=== PATIENT | female | born 1945 | race Caucasian/White ===

== ENCOUNTER 2017-02-23 19:36 | Emergency (ER) | payer OTHER ==
--- NOTE | 2017-02-23 20:04 | EDPHY ---
H & P Stated Complaint: Pt thinks she has West Nile Virus Time Seen by Provider: 02/23/17 20:03 - Personal History Current Tetanus/Diphtheria Vaccine: No - Medical/Surgical History Hx Asthma: No Hx Chronic Respiratory Disease: No Hx Diabetes: Yes Hx Cardiac Disease: Yes Hx Renal Disease: No Hx Cirrhosis: No Hx Alcoholism: No Hx HIV/AIDS: No Hx Splenectomy or Spleen Trauma: No Other PMH: pmh- pre-diabetic, htn, depression, chronic low back pain, hypothryoid. psh- hysterectomy, fawn, appy, ortho - Social History Smoking Status: Former smoker Constitutional: Initial Vital Signs Temperature (C) 37.3 C 02/23/17 19:42 Heart Rate 106 H 02/23/17 19:42 Respiratory Rate 14 02/23/17 19:42 Blood Pressure 132/95 H 02/23/17 19:42 O2 Sat (%) 93 02/23/17 19:42 O2 Delivery Mode Room Air Allergies/Adverse Reactions: No Known Allergies Allergy (Verified 11/25/15 12:43) Home Medications: Medication Instructions Recorded Furosemide [Lasix 20 MG (*)] 20 mg PO DAILY PRN 03/29/14 Levothyroxine Sodium 225 mcg PO SUTUTHSA@03/29/14 Levothyroxine Sodium 300 mcg PO MOWEFR@03/29/14 Zolpidem Tartrate [Ambien 10 mg] 10 mg PO HS 03/29/14 Cholecalciferol (Vitamin D3) 2,000 unit PO DAILY 09/24/14 [Vitamin D3] DULoxetine [Cymbalta 60 MG (*)] 60 mg PO DAILY@22 09/24/14 Multivitamins [Multivitamin (*)] 1 each PO DAILY 09/24/14 Promethazine HCl 25 mg PO DAILY PRN 09/24/14 Amlodipine Besylate 11/25/15 oxyCODONE/APAP 5/325 [Percocet 1 tab PO Q4 PRN #30 tab 11/25/15 5/325 (*)] Medical Decision Making ED Course/Re-evaluation: CHIEF COMPLAINT: HISTORY OF PRESENT ILLNESS: must have 4 elements: Location, Quality, Severity , Duration, Timing, Context, Modifying Factors, Associated Signs and Symptoms REVIEW OF SYSTEMS: A 10 point review of systems was performed and is negative with the exception of the elements mentioned in the history of present illness. PHYSICAL EXAM: HR, BP, O2 Sat, RR. Temp noted General Appearance: Alert, well hydrated, appropriate, and non-toxic appearing. Head: Atraumatic without scalp tenderness or obvious injury Eyes: Pupils equal, round, reactive to light and accommodation, EOMI, no trauma , no injection. Ears: Clear bilaterally, no perforation, normal landmarks Nose: Atraumatic, no rhinorrhea, clear. Throat: There is no erythema or exudates, no lesions, normal tonsils, mucus membranes moist. Neck: Supple, 2+ carotid upstroke, nontender, no lymphadenopathy. Respiratory: No retractions, no distress, no wheezes, and no accessory muscle use. Lungs are clear to auscultation bilaterally. Cardiovascular: Regular rate and rhythm, no murmurs, rubs, or gallops. Bilateral carotid, radial, dorsalis pedis, and posterior tibial pulses intact. Good capillary refill all extremities. Gastrointestinal: Abdomen is soft, nontender, non-distended, no masses, no rebound, no guarding, no peritoneal signs. Musculoskeletal: Normal active ROM of all extremities, atraumatic. Neurological: Alert, appropriate, and interactive. The patient has normal DTRs and non-focal cranial nerves, motor, sensory, and cerebellar exam. Skin: No rashes, good turgor, no nodules on palpation. Past medical history: Past surgical history: Family history: Social history: DIAGNOSTICS/PROCEDURES/CRITICAL CARE TIME: DIFFERENTIAL DIAGNOSIS: MEDICAL DECISION MAKING: Departure - Departure Referrals: Lexii Taylor MD [Primary Care Provider] - As per Instructions
[2017-02-23 20:30] LABS: % IMMATURE GRANULYOCYTES 0.4 % (0.0-1.1); ABSOLUTE IMMATURE GRANULOCYTES 0.03 10^3/uL (0.00-0.10); ADD DIFF? NO; ADD MORPH? NO; ADD SCAN? NO; ATYPICAL LYMPHOCYTE FLAG 30 (0-99); FRAGMENT RBC FLAG 0 (0-99); HEMATOCRIT 42.3 % (38.0-47.0); HEMOGLOBIN 14.3 g/dL (12.6-16.3); LEFT SHIFT FLG 0 (0-99); LIPEMIA HEMOLYSIS FLAG 90 (0-99); MEAN CELL HEMOGLOBIN 32.5 pg (27.9-34.1); MEAN CELL HEMOGLOBIN CONCENTR. 33.8 g/dL (32.4-36.7); MEAN CELL VOLUME 96.1 fL (81.5-99.8); PLATELET CLUMPS FLAG 10 (0-99); PLATELET COUNT 164 10^3/uL (150-400); RED CELL DISTRIBUTION WIDTH 13.3 % (11.5-15.2)
[2017-02-23 20:44] LABS: ANION GAP 12 mEq/L (8-16); CALCIUM 9.2 mg/dL (8.5-10.4); CARBON DIOXIDE 25 mEq/l (22-31); CHLORIDE 101 mEq/L (97-110); CREATININE 0.8 mg/dL (0.6-1.0); GLOMERULAR FILTRATION RATE > 60; GLUCOSE 154 mg/dL (70-100); POTASSIUM 3.4 mEq/L (3.5-5.2); SODIUM 138 mEq/L (134-144)
[2017-02-23 21:50] LABS: COLOR YELLOW; LEUKOCYTE ESTERASE,URINE 3+ (NEGATIVE); NITRITE,URINE NEGATIVE (NEGATIVE)
[2017-02-23 21:53] LABS: BACTERIA TRACE /hpf (NONE SEEN); MUCUS TRACE /lpf (NONE-1+); WBC,URINE 25-50 /hpf (0-3)
--- NOTE | 2017-02-23 21:54 | EDPHY ---
H & P Stated Complaint: Pt thinks she has West Nile Virus Time Seen by Provider: 02/23/17 20:03 HPI/ROS: Chief complaint: Feeling unwell, concerned she has West Nile virus History of present illness: This is a 71-year-old female who presents to the emergency department stating she is feeling unwell. She is concerned she has West Nile virus. She states over the last few days she has developed generalized malaise, headache, low back pain and now a rash on her lower legs. She talked with her neighbor who is concerned because her neighbor had West Nile virus and had a similar presentation. Patient denies other associated signs or symptoms including no fevers, no sore throat, no cough, shortness of breath or chest pain. Review of systems: A 10 point review of systems was obtained and other than described above was negative - Personal History Current Tetanus/Diphtheria Vaccine: No - Medical/Surgical History Hx Asthma: No Hx Chronic Respiratory Disease: No Hx Diabetes: Yes Hx Cardiac Disease: Yes Hx Renal Disease: No Hx Cirrhosis: No Hx Alcoholism: No Hx HIV/AIDS: No Hx Splenectomy or Spleen Trauma: No Other PMH: pmh- pre-diabetic, htn, depression, chronic low back pain, hypothryoid. psh- hysterectomy, fawn, appy, ortho - Social History Smoking Status: Former smoker - Physical Exam Exam: General Appearance: Alert, no distress. Eyes: Pupils equal and round no pallor or injection. ENT, Mouth: Mucous membranes moist. Oropharynx unremarkable. Respiratory: There are no retractions, lungs are clear to auscultation. Cardiovascular: Regular rate and rhythm. Gastrointestinal: Abdomen is soft and non tender, no masses, bowel sounds normal. Neurological: Alert and oriented x4. Strength and sensation intact and symmetrical. No meningismus. Skin: Warm and dry. Chronic changes of the lower extremities secondary to her diabetes. Occasional petechiae are noted on the lower extremities bilaterally which she states is new. Musculoskeletal: Neck is supple non tender. Extremities are symmetrical, full range of motion. Psychiatric: Patient is oriented X 3, there is no agitation. Constitutional: Initial Vital Signs Temperature (C) 37.3 C 02/23/17 19:42 Heart Rate 106 H 02/23/17 19:42 Respiratory Rate 14 02/23/17 19:42 Blood Pressure 132/95 H 02/23/17 19:42 O2 Sat (%) 93 02/23/17 19:42 O2 Delivery Mode Room Air Allergies/Adverse Reactions: No Known Allergies Allergy (Verified 11/25/15 12:43) Home Medications: Medication Instructions Recorded Furosemide [Lasix 20 MG (*)] 20 mg PO DAILY PRN 03/29/14 Levothyroxine Sodium 225 mcg PO SUTUTHSA@03/29/14 Levothyroxine Sodium 300 mcg PO MOWEFR@03/29/14 Zolpidem Tartrate [Ambien 10 mg] 10 mg PO HS 03/29/14 Cholecalciferol (Vitamin D3) 2,000 unit PO DAILY 09/24/14 [Vitamin D3] DULoxetine [Cymbalta 60 MG (*)] 60 mg PO DAILY@09/24/14 Multivitamins [Multivitamin (*)] 1 each PO DAILY 09/24/14 Promethazine HCl 25 mg PO DAILY PRN 09/24/14 Amlodipine Besylate 11/25/15 oxyCODONE/APAP 5/325 [Percocet 1 tab PO Q4 PRN #30 tab 11/25/15 5/325 (*)] Cephalexin [Keflex] 500 mg PO TID 7 Days 02/23/17 Medical Decision Making ED Course/Re-evaluation: Patient is discussed with my secondary supervising physician Dr. Jonathon Hogan. Patient presents to the emergency department concerned she has West Nile virus. On presentation she is nontoxic. Afebrile and vital signs are stable. Physical exam does reveal occasional petechiae to the lower extremities but is otherwise unremarkable. Laboratory studies largely unremarkable. Urinalysis is concerning for potential urinary tract infection. West Nile serologies are pending. At this time my suspicion for serious pathology is low. I will treat her with Keflex for potential urinary tract infection which could be causing the symptoms. We have asked her to keep an eye on her rash as this could be a vasculitis although it is not clear and if it worsens she will need follow-up for recheck. She is asked to follow up with her primary care doctor for recheck next week. Return precautions are given. Patient voiced understanding and agreement with plan. Differential Diagnosis: Included but not limited to viral syndrome including West Nile, respiratory tract infections, urinary tract infections vasculitis unlikely meningitis - Data Points Laboratory Results: Laboratory Results 02/23/17 20:23 02/23/17 20:23 02/23/17 02/23/17 02/23/17 21:42 20:23 20:23 WBC RBC Hgb Hct MCV MCH MCHC RDW Plt Count MPV Neut % (Auto) Lymph % (Auto) Steele % (Auto) Eos % (Auto) Baso % (Auto) Nucleat RBC Rel Count Absolute Neuts (auto) Absolute Lymphs (auto) Absolute Monos (auto) Absolute Eos (auto) Absolute Basos (auto) Absolute Nucleated RBC Immature Gran % Immature Gran # Sodium 138 mEq/L mEq/L (134-144) Potassium 3.4 mEq/L L mEq/L (3.5-5.2) Chloride 101 mEq/L mEq/L (97-110) Carbon Dioxide 25 mEq/l mEq/l (22-31) Anion Gap 12 mEq/L mEq/L (8-16) BUN 14 mg/dL mg/dL (7-23) Creatinine 0.8 mg/dL mg/dL (0.6-1.0) Estimated GFR > 60 Glucose 154 mg/dL H mg/dL (70-100) Calcium 9.2 mg/dL mg/dL (8.5-10.4) Urine Color YELLOW Urine Appearance HAZY Urine pH 5.0 (5.0-7.5) Ur Specific [place] 1.015 (1.002-1.030) Urine Protein NEGATIVE (NEGATIVE) Urine Ketones NEGATIVE (NEGATIVE) Urine Blood 1+ H (NEGATIVE) Urine Nitrate NEGATIVE (NEGATIVE) Urine Bilirubin NEGATIVE (NEGATIVE) Urine Urobilinogen NEGATIVE EU EU (0.2-1.0) Ur Leukocyte Esterase 3+ H (NEGATIVE) Urine RBC 1-3 /hpf /hpf (0-3) Urine WBC 25-50 /hpf H /hpf (0-3) Ur Epithelial Cells TRACE /lpf /lpf (NONE-1+) Urine Bacteria TRACE /hpf H /hpf (NONE SEEN) Urine Mucus TRACE /lpf /lpf (NONE-1+) Urine Glucose NEGATIVE (NEGATIVE) West Nile Virus IgG Ab Pending West Nile Virus IgM Ab Pending West Nile Interp Pending 02/23/17 20:23 WBC 8.30 10^3/uL 10^3/uL (3.80-9.50) RBC 4.40 10^6/uL 10^6/uL (4.18-5.33) Hgb 14.3 g/dL g/dL (12.6-16.3) Hct 42.3 % % (38.0-47.0) MCV 96.1 fL fL (81.5-99.8) MCH 32.5 pg pg (27.9-34.1) MCHC 33.8 g/dL g/dL (32.4-36.7) RDW 13.3 % % (11.5-15.2) Plt Count 164 10^3/uL 10^3/uL (150-400) MPV 10.0 fL fL (8.7-11.7) Neut % (Auto) 57.4 % % (39.3-74.2) Lymph % (Auto) 26.3 % % (15.0-45.0) Steele % (Auto) 10.7 % % (4.5-13.0) Eos % (Auto) 4.2 % % (0.6-7.6) Baso % (Auto) 1.0 % % (0.3-1.7) Nucleat RBC Rel Count 0.0 % % (0.0-0.2) Absolute Neuts (auto) 4.77 10^3/uL 10^3/uL (1.70-6.50) Absolute Lymphs (auto) 2.18 10^3/uL 10^3/uL (1.00-3.00) Absolute Monos (auto) 0.89 10^3/uL H 10^3/uL (0.30-0.80) Absolute Eos (auto) 0.35 10^3/uL 10^3/uL (0.03-0.40) Absolute Basos (auto) 0.08 10^3/uL 10^3/uL (0.02-0.10) Absolute Nucleated RBC 0.00 10^3/uL 10^3/uL (0-0.01) Immature Gran % 0.4 % % (0.0-1.1) Immature Gran # 0.03 10^3/uL 10^3/uL (0.00-0.10) Sodium Potassium Chloride Carbon Dioxide Anion Gap BUN Creatinine Estimated GFR Glucose Calcium Urine Color Urine Appearance Urine pH Ur Specific [place] Urine Protein Urine Ketones Urine Blood Urine Nitrate Urine Bilirubin Urine Urobilinogen Ur Leukocyte Esterase Urine RBC Urine WBC Ur Epithelial Cells Urine Bacteria Urine Mucus Urine Glucose West Nile Virus IgG Ab West Nile Virus IgM Ab West Nile Interp Medications Given: Discontinued Medications Cephalexin (Keflex 500 Mg Prepack#4) 1 btl TAKEHOME EDNOW ONE PRN Reason: Protocol Stop: 02/23/17 21:58 Last Admin: 02/23/17 22:16 Dose: 1 btl Departure - Departure Disposition: Home, Routine, Self-Care Clinical Impression: UTI (urinary tract infection), Rash Condition: Good Instructions: Urinary Tract Infection in Women (ED), Acute Rash (ED) Additional Instructions: Follow-up with your primary care doctor on Saturday for recheck without fail If symptoms worsen or new symptoms develop return to the emergency room for recheck Referrals: Lexii Taylor MD [Primary Care Provider] - As per Instructions Prescriptions: Cephalexin [Keflex] 500 mg PO TID 7 Days
[2017-02-23] MEDS ORDERED: CEPHALEXIN 500MG PREPACK#4 BTL TAKEHOME ONE (21:57)
[2017-02-23 22:22] VITALS: BP 128/85; PULSE 100; RESP 16; TEMP 98.8; O2SAT 94
[2017-02-27 15:07] LABS: INTERPRETATION See Comments; WEST NILE VIRUS IGG Negative (Negative); WEST NILE VIRUS IGM Negative (Negative)
== END 2017-02-23 22:21 | disposition home or self-care (01) ==
DX: R21 Rash and other nonspecific skin eruption (principal); N39.0 Urinary tract infection, site not specified; B96.89 Other specified bacterial agents as the cause of diseases classified elsewhere; E11.9 Type 2 diabetes mellitus without complications; I10 Essential (primary) hypertension; Z87.891 Personal history of nicotine dependence

== ENCOUNTER → 2017-03-05 | Outpatient (CLI) | payer OTHER | LOC: FIMAGING 10:02 | PROVIDERS: ATTEND Internal Medicine | DX: M51.36 Other intervertebral disc degeneration, lumbar region (principal); M51.35 Other intervertebral disc degeneration, thoracolumbar region; M12.88 Other specific arthropathies, not elsewhere classified, other specified site; M48.06 Spinal stenosis, lumbar region; M99.73 Connective tissue and disc stenosis of intervertebral foramina of lumbar region ==

== ENCOUNTER 2017-03-25 07:44 | Emergency (ER) | payer OTHER ==
[2017-03-25 07:51] VITALS: TEMP 98.2
--- NOTE | 2017-03-25 08:23 | EDPHY ---
H & P Stated Complaint: Fell out of bed,hit head on dresser;no LOC;lac to R upper forehead Source: Patient - Personal History Current Tetanus Diphtheria and Acellular Pertussis (TDAP): Unsure - Medical/Surgical History Hx Asthma: No Hx Chronic Respiratory Disease: No Hx Diabetes: Yes Hx Cardiac Disease: Yes Hx Renal Disease: No Hx Cirrhosis: No Hx Alcoholism: No Hx HIV/AIDS: No Hx Splenectomy or Spleen Trauma: No Other PMH: pmh- pre-diabetic, htn, depression, chronic low back pain, hypothryoid. psh- hysterectomy, fawn, appy, ortho - Social History Smoking Status: Former smoker Time Seen by Provider: 03/25/17 08:23 Constitutional: Initial Vital Signs Temperature (C) 36.8 C 03/25/17 07:46 Heart Rate 96 03/25/17 07:46 Respiratory Rate 18 03/25/17 07:46 Blood Pressure 150/90 H 03/25/17 07:46 O2 Sat (%) 95 03/25/17 07:46 O2 Delivery Mode Room Air Allergies/Adverse Reactions: No Known Allergies Allergy (Verified 03/25/17 07:45) Home Medications: Medication Instructions Recorded Furosemide [Lasix 20 MG (*)] 20 mg PO DAILY PRN 03/29/14 Levothyroxine Sodium 225 mcg PO SUTUTHSA@03/29/14 Levothyroxine Sodium 300 mcg PO MOWEFR@03/29/14 Zolpidem Tartrate [Ambien 10 mg] 10 mg PO HS 03/29/14 DULoxetine [Cymbalta 60 MG (*)] 60 mg PO DAILY@09/24/14 Amlodipine Besylate 11/25/15 oxyCODONE/APAP 5/325 [Percocet 1 tab PO Q4 PRN #30 tab 11/25/15 5/325 (*)] Medical Decision Making - Diagnostics Imaging: Discussed imaging studies w/ crew caller Radiologist - Diagnostics Imaging Results: Imaging Impressions Head CT 03/25/17 08:30 Impression: 1. Right frontotemporal laceration. 2. No acute intracranial abnormality. 3. Mild volume loss. 4. Mild chronic small vessel skin changes in the supratentorial white matter. Dr. Rodriguez discussed these findings by telephone with Jonathon Hogan MD at 05/2017 9:16. Procedures: Procedure: Laceration repair. Verbal consent was obtained from the patient. The 6 cm laceration on the right temporal scalp was anesthetized using 1% lidocaine with epinephrine. The wound was carefully irrigated by the emergency department atmospheric technician. Next, the wound was prepped and draped in sterile fashion and explored to its base with a gloved finger. There were no deep structures involved. No vascular injury was identified. No foreign bodies were identified. The wound was repaired with 14. Nelly. The wound repair was simple. The procedure was performed by myself. Tetanus and antibiotic status were addressed. (Xi Fernandes) ED Course/Re-evaluation: CHIEF COMPLAINT: Scalp laceration. HISTORY OF PRESENT ILLNESS: The patient is a 71-year-old female presenting with a head laceration after a mechanical fall this morning. The patient was getting out of bed this morning and tripped over a blanket. She hit her head on the dresser and has a laceration to the right frontal scalp. The patient did not lose consciousness. She denies headache or visual changes. No chest pain or shortness of breath prior to the fall. REVIEW OF SYSTEMS: A 10 point review of systems was performed and is negative with the exception of the elements mentioned in the history of present illness. PHYSICAL EXAM: HR, BP, O2 Sat, RR. Temp noted General Appearance: Alert, well hydrated, appropriate, and non-toxic appearing. Head: 6cm Laceration along the hairline on the right. Eyes: Pupils equal, round, reactive to light and accommodation, EOMI, no trauma , no injection. Ears: Clear bilaterally, no perforation. Throat: There is no erythema or exudates, no lesions, normal tonsils, mucus membranes moist. Neck: Supple, 2+ carotid upstroke, nontender, no lymphadenopathy. Respiratory: No retractions, no distress, no wheezes, and no accessory muscle use. Lungs are clear to auscultation bilaterally. Cardiovascular: Regular rate and rhythm, no murmurs, rubs, or gallops. Bilateral carotid, radial, dorsalis pedis, and posterior tibial pulses intact. Good capillary refill all extremities. Gastrointestinal: Abdomen is soft, nontender, non-distended, no masses, no rebound, no guarding, no peritoneal signs. Musculoskeletal: Normal active ROM of all extremities, atraumatic. Neurological: Alert, appropriate, and interactive. The patient has normal DTRs and non-focal cranial nerves, motor, sensory, and cerebellar exam. Skin: No rashes, good turgor, no nodules on palpation. Past medical history: Hypertension, Depression, Chronic low back pain, Hypothyroid. Past surgical history: Hysterectomy, Cholecystectomy, Appendectomy Family history: Noncontributory. Social history: DIAGNOSTICS/PROCEDURES/CRITICAL CARE TIME: The LESLEY Fernandes performed the laceration repair. DIFFERENTIAL DIAGNOSIS: The differential diagnosis for the patient's head injury included but was not limited to scalp laceration, concussion, skull fracture, intra-parenchymal contusion, subarachnoid, subdural and epidural hematoma. MEDICAL DECISION MAKING: Patient presents with a 6cm laceration along the hairline on the right side from a mechanical fall. Patient takes Aspirin, no anticoagulants. Plan for CT head without contrast. CT head is negative. (Jonathon Hogan) - Data Points Medications Given: Discontinued Medications Diphtheria/Tetanus/Acell Pertussis (Boostrix) 0.5 ml IM .ONCE ONE Stop: 03/25/17 08:37 Last Admin: 03/25/17 08:52 Dose: 0.5 ml Departure - Departure Disposition: Home, Routine, Self-Care Clinical Impression: Laceration of head Qualifiers: Encounter type: initial encounter Location of open wound of head: scalp Foreign body presence: without foreign body Qualified Code(s): S01.01XA - Laceration without foreign body of scalp, initial encounter Condition: Good Instructions: Care For Your Stitches (ED), Laceration (ED) Additional Instructions: Have your nelly removed in [] days. Return to the Emergency Department with fever, increased redness, pain, swelling, or drainage from the wound. Referrals: Lexii Taylor MD [Primary Care Provider] - As per Instructions Report Scribed for: Jonathon Hogan Report Scribed by: Clara Marie Date of Report: 03/25/17 Time of Report: 09:19
[2017-03-25] MEDS ORDERED: TDAP ADULT 0.5 ML INJ (BOOSTRIX) IM ONE (08:36)
[2017-03-25 09:57] VITALS: BP 108/81; PULSE 95; RESP 16; O2SAT 96
== END 2017-03-25 10:51 | disposition home or self-care (01) ==
PROC: 0HQ0XZZ Repair Scalp Skin, External Approach (ICD-10-PCS; principal; 2017-03-25)
DX: S01.01XA Laceration without foreign body of scalp, initial encounter (principal); I10 Essential (primary) hypertension; Z23 Encounter for immunization; Z87.891 Personal history of nicotine dependence; W01.198A Fall on same level from slipping, tripping and stumbling with subsequent striking against other object, initial encounter

== ENCOUNTER 2017-04-27 13:40 | Emergency (ER) | payer OTHER ==
[2017-04-27 13:54] VITALS: TEMP 98.1
--- NOTE | 2017-04-27 15:02 | EDPHY ---
H & P Time Seen by Provider: 04/27/17 15:00 HPI/ROS: CHIEF COMPLAINT: Right-sided chest pain after a fall HISTORY OF PRESENT ILLNESS: Patient was playing Frisbee with her dog 10 days ago when she reached for the Frisbee and then tripped over her dog pivoting and landing on her chest. The right side of her chest hurt a little bit initially but over the last 4 5 days it hurts more. She says she can feel little bit of crunching when she takes a big breath or moves. It is located above her breast on the right. Radiates a little bit to her back but not to the left side. Not exertional and not associated with cough or shortness of breath or nausea or vomiting. REVIEW OF SYSTEMS: Eye: no change in vision ENT: no sore throat Cardiac: No palpitations or syncope Pulmonary: no cough or SOB Abdomen: no vomiting, diarrhea, abdominal pain Musculoskeletal: Ongoing back pain, unchanged. No neck pain. Skin: no rash Neuro: no headache Constitutional: no fever : no urinary symptoms A comprehensive 10 point review of systems is otherwise negative aside from elements mentioned in the history of present illness. PAST MEDICAL HISTORY: Includes hypertension and depression, back pain, thyroid , hysterectomy cholecystectomy appendectomy Social history: Nonsmoker General Appearance: Alert and conversant, cooperative. Eyes: No scleral icterus. ENT, Mouth: Normal mucous membranes. Respiratory: Normal respiratory effort, breath sounds equal, lungs are clear to auscultation. No crepitus. Cardiovascular: Regular rate and rhythm. Gastrointestinal: Abdomen is soft and non tender. Neurological: Alert and oriented x3. Normally conversant. Face symmetric, normal movement and sensation in all extremities. Skin: Warm and dry, no rashes. Musculoskeletal: No midline spinal tenderness. Psychiatric: Not agitated. Emergency Department course/MDM: Chest x-ray ordered. Results reviewed with the patient. I told her she could have a nondisplaced rib fracture. She thinks that she can feel crunching when she rolls over in bed at night. She has oxycodone prescribed by her physician. She is warned that full healing may take at least a couple of months. She is reassured that I do not see pneumothorax or hemothorax. I do not think this chest pain is related to anything other than her recent injury. Smoking Status: Former smoker Constitutional: Initial Vital Signs Temperature (C) 36.7 C 04/27/17 13:52 Heart Rate 93 04/27/17 13:52 Respiratory Rate 18 04/27/17 13:52 Blood Pressure 123/70 H 04/27/17 13:52 O2 Sat (%) 93 04/27/17 13:52 O2 Delivery Mode Room Air Allergies/Adverse Reactions: No Known Allergies Allergy (Verified 04/27/17 13:54) Home Medications: Medication Instructions Recorded Furosemide [Lasix 20 MG (*)] 20 mg PO DAILY PRN 03/29/14 Levothyroxine Sodium 225 mcg PO SUTUTHSA@03/29/14 Levothyroxine Sodium 300 mcg PO MOWEFR@03/29/14 Zolpidem Tartrate [Ambien 10 mg] 10 mg PO HS 03/29/14 DULoxetine [Cymbalta 60 MG (*)] 60 mg PO DAILY@09/24/14 Amlodipine Besylate 11/25/15 oxyCODONE/APAP 5/325 [Percocet 1 tab PO Q4 PRN #30 tab 11/25/15 5/325 (*)] Medical Decision Making - Diagnostics Imaging Results: Imaging Impressions Chest X-Ray 04/27/17 15:01 Impression: 1. Equivocal nondisplaced anterior right fifth rib fracture. 2. Clear lungs. No pneumothorax or effusion. Differential Diagnosis: Differential considered including but not limited to pneumothorax, hemothorax, rib fracture, chest wall contusion. Departure - Departure Disposition: Home, Routine, Self-Care Clinical Impression: Chest wall contusion Condition: Good Instructions: Contusion in Adults (ED), Rib Contusion (ED) Additional Instructions: It is possible that you have a nondisplaced rib fracture. Tylenol 650 mg or ibuprofen 600 mg every 8 hours for the next 3 days. Use your oxycodone as needed for breakthrough pain. Please follow-up with your primary care doctor next week for re-evaluation. Referrals: Lexii Taylor MD [Primary Care Provider] - As per Instructions
[2017-04-27 16:07] VITALS: BP 114/101; PULSE 90; RESP 16; O2SAT 94
== END 2017-04-27 16:05 | disposition home or self-care (01) ==
DX: S20.211A Contusion of right front wall of thorax, initial encounter (principal); W01.0XXA Fall on same level from slipping, tripping and stumbling without subsequent striking against object, initial encounter; Y93.74 Activity, frisbee; I10 Essential (primary) hypertension; Z87.891 Personal history of nicotine dependence

== ENCOUNTER → 2017-12-03 | Outpatient (CLI) | payer OTHER | LOC: FIMAGING 11:24 | PROVIDERS: ATTEND Internal Medicine Endocrinology, Diabetes & Metabolism | DX: Z13.820 Encounter for screening for osteoporosis (principal); M81.0 Age-related osteoporosis without current pathological fracture; Z87.311 Personal history of (healed) other pathological fracture ==

== ENCOUNTER 2018-06-15 09:09 | Inpatient (IN) | payer OTHER ==
[2018-06-15] MEDS ORDERED: HYDROmorphONE/DILAUDID 2 MG/ML INJ IVP ONE (09:35)
--- NOTE | 2018-06-15 09:38 | EDPHY ---
H & P Stated Complaint: L hand lac - Personal History Current Tetanus/Diphtheria Vaccine: Yes Current Tetanus Diphtheria and Acellular Pertussis (TDAP): Yes - Medical/Surgical History Hx Asthma: No Hx Chronic Respiratory Disease: No Hx Diabetes: Yes Hx Cardiac Disease: Yes Hx Renal Disease: No Hx Cirrhosis: No Hx Alcoholism: No Hx HIV/AIDS: No Hx Splenectomy or Spleen Trauma: No Other PMH: pmh- pre-diabetic, htn, depression, chronic low back pain, hypothryoid. psh- hysterectomy, fawn, appy, ortho - Social History Smoking Status: Former smoker Time Seen by Provider: 06/15/18 09:28 HPI/ROS: Chief complaint: Left hand infection History of present illness: This is a 72-year-old female who presents to the emergency department concerned she has a left hand infection. On , approximately 4 days ago, she sustained a small cut to her left thumb opening a bottle of olive oil. She cleaned it and dressed it. However yesterday she started to develope significant redness and swelling extending up onto the wrist. There is a significant amount of pain associated with it. It is difficult to move the thumb and wrist. No report of fevers. No red streaking. No other complaints. Review of systems: A 10 point review of systems was obtained and other than described above was negative (Jame Bueno) - Physical Exam Exam: General Appearance: Alert, appears uncomfortable. Eyes: Pupils equal and round no pallor or injection. ENT, Mouth: Mucous membranes moist. Respiratory: There are no retractions, lungs are clear to auscultation. Cardiovascular: Regular rate and rhythm. Neurological: Alert and oriented. Sensation intact in the left hand. Skin: There is a small cut the flexor surface of the left thumb. The thumb, extending down onto the thenar eminence and up onto the anterior surface of the wrist and forearm is erythematous and edematous. There is warmth and tenderness to palpation. I do not appreciate red streaking. Musculoskeletal: She has difficulty moving the thumb and wrist on the left side. Psychiatric: Patient is oriented X 3, there is no agitation. (Jame Bueno) Constitutional: Initial Vital Signs Temperature (C) 36.9 C 06/15/18 09:18 Heart Rate 112 H 06/15/18 09:18 Respiratory Rate 24 H 06/15/18 09:18 Blood Pressure 154/98 H 06/15/18 09:18 O2 Sat (%) 92 06/15/18 09:18 O2 Delivery Mode Room Air Allergies/Adverse Reactions: No Known Allergies Allergy (Verified 06/15/18 09:16) Home Medications: Medication Instructions Recorded Furosemide [Lasix 20 MG (*)] 20 mg PO DAILY PRN 03/29/14 Levothyroxine Sodium 150 mcg PO DAILY 03/29/14 DULoxetine [Cymbalta 60 MG (*)] 60 mg PO DAILY@22 09/24/14 Denosumab [Prolia] 60 mg SQ .[id number] 06/15/18 Herbals/Supplements -Info Only 1 ea PO DAILY 06/15/18 Ibuprofen [Motrin (*)] 600 mg PO DAILY PRN 06/15/18 Pioglitazone HCl [Actos 15mg (*)] 15 mg PO DAILY 06/15/18 Zolpidem Tartrate [Ambien 5MG (*)] 10 mg PO HS 06/15/18 amLODIPine BESYLATE [Norvasc 5 mg 5 mg PO DAILY 06/15/18 (*)] Medical Decision Making - Diagnostics Imaging: I viewed and interpreted images myself ED Course/Re-evaluation: Patient seen in conjunction with my attending physician Dr. Dick Larsen. Patient presents with what appears to be a left hand and wrist cellulitis. She is nontoxic. She did trigger sepsis screening but no evidence of severe sepsis after evaluation. Given her comorbidities including age and diabetes and evidence of cellulitis I will admit her for further evaluation and care. She is started on Ancef 2 g IV. Plan has been discussed with the patient who voiced understanding and agreement with it. (Jame Bueno) Differential Diagnosis: Included but not limited to cellulitis, abscess, infectious tenosynovitis, lymphangitis, osteomyelitis (Jame Bueno) Other Provider: PHYSICIAN DOCUMENTATION: The patient was evaluated and managed by the Physician Family Independence Case Manager and myself. I have reviewed the chart and agree with the findings and plan of care as documented. In addition, I examined the patient myself at 935. History confirmed as laceration while opening a bottle, previous surgery on that left wrist for fracture. Physical findings as follows: Redness and swelling extending from the IP joint of the thumb at the laceration proximally extending 4 or 5 cm proximal on the wrist on the volar side including over the previous surgical incision. She is tender there, but no fluctuance or crepitus. Admission for IV antibiotics for left thumb and hand infection. I am the secondary supervising physician. (Dick Larsen) - Data Points Medications Given: Hydrocodone Bitart/Acetaminophen ([place] 5/325) 1 - 2 tab PO Q4HRS PRN PRN Reason: Pain, Moderate Able to Take PO Stop: 06/25/18 12:13 Last Admin: 06/15/18 12:22 Dose: 1 tab Cefazolin Sodium/Dextrose (Ancef 1 Gm (Premix)) 50 mls @ 200 mls/hr IV Q8HRS KYLEIGH PRN Reason: Protocol Stop: 07/15/18 13:59 Last Admin: 06/15/18 13:49 Dose: 50 mls Ondansetron HCl (Zofran Odt) 4 mg PO Q4HRS PRN PRN Reason: Nausea/Vomiting, Use 1st Stop: 12/12/18 12:13 Last Admin: 06/15/18 13:21 Dose: 4 mg Oxycodone HCl (Oxycodone Ir) 5 - 10 mg PO Q3HRS PRN PRN Reason: Pain, Severe Able to Take PO Stop: 06/25/18 12:13 Last Admin: 06/15/18 13:21 Dose: 5 mg Discontinued Medications Hydrocodone Bitart/Acetaminophen ([place] 5/325) 1 tab PO EDNOW ONE Stop: 06/15/18 10:02 Last Admin: 06/15/18 10:08 Dose: 1 tab Hydromorphone HCl (Dilaudid) 0.5 mg IVP EDNOW ONE Stop: 06/15/18 09:36 Last Admin: 06/15/18 10:20 Dose: 0.5 mg Cefazolin Sodium/Dextrose (Ancef 1 Gm (Premix)) 50 mls @ 200 mls/hr IV EDNOW ONE PRN Reason: Protocol Stop: 06/15/18 09:49 Last Admin: 06/15/18 10:19 Dose: 50 mls Cefazolin Sodium/Dextrose (Ancef 1 Gm (Premix)) 50 mls @ 200 mls/hr IV EDNOW ONE PRN Reason: Protocol Stop: 06/15/18 10:01 Last Admin: 06/15/18 10:20 Dose: Not Given Sodium Chloride (Ns) 1,000 mls @ 0 mls/hr IV EDNOW ONE; Wide Open PRN Reason: Protocol Stop: 06/15/18 09:48 Last Admin: 06/15/18 10:21 Dose: 1,000 mls Magnesium Sulfate/Dextrose (Magnesium Sulf 1 Gm (Premix)) 100 mls @ 100 mls/hr IV EDNOW ONE Stop: 06/15/18 11:48 Last Admin: 06/15/18 12:28 Dose: 100 mls Potassium Chloride (Potassium Cl 10 Meq (Premix)) 100 mls @ 100 mls/hr IV EDNOW ONE Stop: 06/15/18 11:48 Last Admin: 06/15/18 11:04 Dose: 100 mls Ibuprofen (Motrin) 400 mg PO EDNOW ONE Stop: 06/15/18 10:00 Last Admin: 06/15/18 10:07 Dose: 400 mg Ondansetron HCl (Zofran Odt) 4 mg PO EDNOW ONE Stop: 06/15/18 10:03 Last Admin: 06/15/18 10:20 Dose: 4 mg Departure - Departure Disposition: [facility] Acute Clinical Impression: Cellulitis of left thumb Condition: Good
[2018-06-15] MEDS ORDERED: NS 1,000 ML IV ONE (09:47)
[2018-06-15] MEDS ORDERED: IBUPROFEN 200 MG TAB PO ONE (09:59)
[2018-06-15] MEDS ORDERED: HYDROCODONE/APAP 5/325 TAB PO ONE (10:01)
[2018-06-15] MEDS ORDERED: ONDANSETRON DISINTEGRATING 4 MG TAB PO ONE (10:02)
[2018-06-15 10:28] LABS: PLATELET COUNT 183 10^3/uL (150-400)
[2018-06-15 10:37] LABS: INR 1.13 (0.83-1.16); PROTIME(PATIENT) 14.7 SEC (12.0-15.0)
[2018-06-15] MEDS ORDERED: POTASSIUM Cl (KCl) 100 ML IV ONE (10:49)
[2018-06-15] MEDS ORDERED: MAGNESIUM SULF 1 GM/DEXTROSE 100 ML IV ONE (10:49)
[2018-06-15] MEDS ORDERED: ONDANSETRON 4 MG/2 ML VIAL IVP PRN (12:14)
[2018-06-15] MEDS ORDERED: ONDANSETRON DISINTEGRATING 4 MG TAB PO PRN (12:14)
[2018-06-15] MEDS ORDERED: PROTOCOL POTASSIUM 1 DOSE MISC PRN (12:16)
[2018-06-15] MEDS: HYDROCODONE/APAP 5/325 TAB PO PRN ×2 (12:22→17:00)
[2018-06-15] MEDS ORDERED: FUROSEMIDE 20 MG TAB PO PRN (12:58)
--- NOTE | 2018-06-15 12:59 | CPEKG ---
Test Reason : OPEN Blood Pressure : / mmHG Vent. Rate : 099 BPM Atrial Rate : 099 BPM P-R Int : 188 ms QRS Dur : 079 ms QT Int : 384 ms P-R-T Axes : 051 000 084 degrees QTc Int : 493 ms Sinus rhythm Low voltage, precordial leads Borderline T abnormalities, anterior leads Borderline prolonged QT interval Confirmed by Dick Larsen ([id number]) on 06/15/2018 12:58:55 PM Referred By: Confirmed By:Dick Larsen
[2018-06-15] MEDS: oxyCODONE IR 5 MG TAB PO PRN ×4 (13:21→23:25)
[2018-06-15] MEDS ORDERED: D50W 25 GM/50 ML SYR IVP PRN (14:12)
[2018-06-15] MEDS ORDERED: IBUPROFEN 600 MG TAB PO PRN (14:12)
--- NOTE | 2018-06-15 15:06 | GHP ---
DATE OF ADMISSION: 06/15/2018 CHIEF COMPLAINT: Hand pain. HISTORY OF PRESENT ILLNESS: The patient is a 72-year-old woman with a history significant for diabet es. She comes in today after cutting her left thumb with increasing hand pain and swelling. She surendra d she cut her thumb 3 days ago and over the last couple days noted increasing swelling and pain. Thi s morning her pain was much more severe and she came into the emergency room for further evaluation a nd treatment. She is having more trouble moving her hand. She denies any fever. She has had some c hills. She denies feeling ill or significant malaise, however, does say that because of the pain, yue leon does not know how she feels. She denies any chest pain, shortness of breath, nausea, vomiting, avis rrhea. She has chronic lower extremity edema and was told she had "an infection" by her primary care provider previously. It sounds like her edema is unchanged. REVIEW OF SYSTEMS: A 10-point review of systems was done and negative except for stated in the HPI. PAST MEDICAL HISTORY: 1. Hypertension. 2. Chronic edema. 3. Hyperlipidemia. 4. Diabetes type 2. 5. Depression. 6. Chronic back pain, currently with a spinal stimulator in place. 7. Hypothyroidism. 8. Obstructive sleep apnea. ALLERGIES: No known drug allergies. SOCIAL HISTORY: She does not drink. Former tobacco use. FAMILY HISTORY: Parents are . PHYSICAL EXAMINATION: VITAL SIGNS: She is afebrile. Heart rate 54, blood pressure 138/79, respirat ions 18. She is 97% on room air. GENERAL: She is a very pleasant 72-year-old. She is in some dist ress due to pain in her left hand. She is alert and oriented. Her speech is clear and fluent. Pupi ls are equal. Extraocular movements intact. Mucous membranes are moist. NECK: Supple. HEART: Re gular with a soft systolic murmur. LUNGS: Clear bilaterally without wheeze, rhonchi, or rales. ABD OMEN: Obese, soft, nontender to palpation. EXTREMITIES: She has bilateral lower extremities with c hronic venous stasis changes, 2+ pulses bilaterally. Left hand shows a laceration across her PIP cony nt of her left thumb with no exudates. She has erythema extending from her thumb down across her the dairan eminence up her wrist and forearm about 3-4 inches. She has tenderness with flexion and extensio n of her thumb, as well as flexion of her wrist. She can flex her fingers, but does have some mild d iscomfort in the palm of her hand with that. She does not have any significant adenopathy in her arm pit. Diagnostics electrocardiogram was done and personally reviewed, shows sinus rhythm, low voltage. Quesada d x-ray shows no fracture, no evidence of osteomyelitis. ASSESSMENT AND PLAN: 1. 72-year-old woman with diabetes, presents with cellulitis of her left hand. Likely source is a l aceration she sustained a few days prior to the swelling. Unclear if she has any evidence of tenosyn ovitis. However, her hand is quite swollen and painful at this time. I did discuss the case with Dr Claudia Saucedo. At this time, I will start her on antibiotics and monitor her closely. Unfortunately, w edward are not able to obtain an MRI because she has a spinal stimulator in place. We will follow her swe lling and erythema closely on antibiotics and hopefully if it significantly improves with improved ra nge of motion with antibiotics alone, she may not need any further surgical intervention. Otherwise, Dr. Saucedo will evaluate the patient. 2. Leukocytosis, likely secondary to the cellulitis. We will monitor this with followup labs in the morning. Blood cultures have been drawn and are pending at the time of dictation. 3. Laceration. This appears to be pretty well healed. She did have a tetanus shot in 2017 and does not need that at this time. 4. Type 2 diabetes, currently on pioglitazone. Will put her on sliding scale insulin while she is h ere in the hospital to obtain better glucose control. 5. Lower extremity edema. This appears to be chronic. Certainly it could be exacerbated by amlodip ine. I am not sure if the pioglitazone can also cause some swelling. She may look into other option s for her blood pressure control as an outpatient. 6. Hypertension, stable. 7. Dyslipidemia. Continue her statin. 8. Chronic low back pain, currently on ibuprofen and meloxicam occasionally. She can continue the i buprofen at this time, however, needs to continue monitoring her renal function. /[id number]/MODL
[2018-06-15] MEDS: INSULIN LISPRO 100 UNIT/ML SC SCH (17:51)
[2018-06-15] MEDS ORDERED: ZOLPIDEM TARTRATE 5 MG TAB PO SCH (21:00)
[2018-06-15] MEDS ORDERED: POTASSIUM CL 10 MEQ TAB PO ONE (21:15)
[2018-06-15] MEDS: DULoxetine 60 MG CAP PO SCH (21:32)
--- NOTE | 2018-06-16 03:00 | GCON ---
ORTHOPEDIC HAND CONSULTATION DATE OF CONSULTATION: 06/15/2018 REFERRING PHYSICIAN: Hattie Ross MD CHIEF COMPLAINT: Left hand pain. HISTORY OF PRESENT ILLNESS: The patient is a pleasant 72-year-old female, who presented to the [facility] emergency department earlier today with a concern of left hand pain and possible signs of infection. She states that on this past , approximately 4 days prior, she sustained a cut to the palmar aspect of her left thumb while cleaning up a bottle of olive oil which had exploded in the microwave. She reports that she initially cleansed her wound and dressed it, noting significant bleeding which subsequently subsided. She noted no additional discharge from her laceration site. However , the patient noted an increase in pain and swelling, and over the last 24 hours , has noticed significant redness as well both on the dorsal and palmar aspects of her hand extending into the wrist. She noted significant increases of pain with any active or passive movement. She continues to deny any significant discharge from her laceration site, but reports difficulty moving her thumb and wrist. At time of consultation, the patient states that her pain is mildly improved since her admission, which she attributes to the pain medication she is receiving here in-house. She also notes that her redness may be slightly improved, though she is unsure. She denies any fevers, nausea or vomiting, as well as any additional red streaking extending beyond the demarcated areas of her left hand and wrist. She notes no significant infectious history to the left hand, as well as denies any recent infections, other than a possible infection for which she is being worked up with Hematology. She is unsure of the nature of this additional problem. She reports no numbness and tingling, and only mild pain at rest. In addition, the patient notes that she denies feeling overall ill or significant malaise, though does note some chills in the past. She also denies any chest pain, shortness of breath or GI issues. She has a history of lower extremity edema, which she reports is unchanged. She denies any other orthopedic pain today. She has no additional concerns or complaints at this time. PAST MEDICAL HISTORY: This is significant for a history of hypertension, chronic edema, hyperlipidemia, diabetes, chronic back pain, for which the patient sees primarily her primary care provider, but has seen several spinal specialists in the past, and has a spinal stimulator in place, history of hypothyroidism, history of obstructive sleep apnea and a history of depression. The patient denies any additional significant past medical history. PAST SURGERY HISTORY: This is significant for a hysterectomy, cholecystectomy, appendectomy, and the orthopedic spine procedure for placement of spinal stimulator as noted above, ORIF of left wrist. Patient denies any additional past surgical history. MEDICATIONS: The patient states that she currently takes levothyroxine 150 mcg p.o. daily, Lasix 20 mg p.o. daily, Cymbalta 60 mg p.o. daily, Actos 15 mg p.o. daily, Ambien 5 mg 1-2 p.o. p.r.n. HS, Motrin 600 mg p.r.n. for pain, Prolia 60 mg SQ every 6 months, Norvasc 5 mg a day, as well as herbal supplements. Please see EMR for full home medication reconciliation. ALLERGIES: The patient states no known drug allergies. SOCIAL HISTORY: The patient states no current tobacco use, but does state she is a former smoker. She denies any current alcohol consumption. She denies any recreational drug use. FAMILY HISTORY: The patient notes that her parents are , but denies any significant contributory family history. REVIEW OF SYSTEMS: An 11-point ROS is reviewed today and is positive for chronic low back pain as mentioned above, occasional reflux, and a history of opiate use in the past. The patient reports that she is wary of continuing significant opiate use on a chronic basis, noting that she took hydrocodone for what she believes was 20 years, stopping sometime back for concerns about this medication and potential addiction potential. She notes that she does not currently see a neurosurgeon for her spine issues, instead placing her care with her primary care provider for this issue. She also notes that she does not have a formal pain specialist at this time. The remainder of the ROS is otherwise negative for any additional concerns complaints or abnormal findings not noted in the HPI or PMH. PHYSICAL EXAMINATION: VITAL SIGNS: Height is 167.64 cm, weight is 106.59 kg, BMI 37. BP is 131/92 mmHg. HR 101 bpm, respirations are 14/min, O2 sats 87% on RA, temperature 37 degrees Celsius. GENERAL: The patient presents in NAD, pleasant and cooperative with exam, appearing her stated age, afebrile. HEENT: EOMI, PERRLA. Ears and nares are patent without discharge. OP is clear. NECK: Supple, NT. No, no cervical LAD noted. CARDIOVASCULAR: RRR. RESPIRATORY: CTAB, no W/C/R, chest motion appears normal. ABDOMEN: Soft, NT/ND. MUSCULOSKELETAL: Left hand as compared to the right for exam purposes. Examination of the left hand reveals a small healing laceration at the PIP of the left thumb, with no active drainage or exudate. Hand is swollen both dorsally and palmarly, with the dorsal swelling extending just distal to the carpals. The erythema is slightly less on the dorsal surface of her hand, just inside the demarcated zones. As is noted moving radially from the dorsal surface of the hand, the erythema increases, and is most pronounced in the thenar eminence, but is also present lesser in the palm. The thenar eminence is TTP, with no induration noted. The remainder of the palm is less tender, with NTTP of the hypothenar eminence. The patient is TTP over the palmar aspect of her thumb, noting active ROM of approximately 10 degrees of the IP and MP joints. The patient is able to fully extend passively, with significant discomfort. The remainder of the fingers reveal AROM of approximately 30 degrees actively and flexion at the MCP, PIP, and DIP joints. The fingers are mildly TTP, with no significant fusiform swelling. The patient is able to passively extend her fingers with significant discomfort noted. The patient's erythema extends approximately 1/3 of her forearm, on the volar surface. At time of examination, the erythema is slightly outside the proximal aspect of the demarcated line previously drawn. No significant calor is noted. Just proximal to this, patient has an IV line placed, with no additional streaking, or significant erythema, discharge or induration noted in the remainder of the arm. No palpable lymph nodes are noted proximally. The patient is intact to light touch sensation distally, as well as in the median, radial and ulnar nerve distributions. Capillary refill is less than 2 seconds in the finger pulps. Right hand exam reveals no significant erythema, discharge or induration. The patient demonstrates full AROM/PROM of the right hand, fingers , wrist and elbow. Bilateral lower extremities reveal chronic swelling, consistent with chronic stasis edema. DNVI BUE. Posterior calves are NTTP, no palpable vascular cords, negative Shital's bilat. SKIN: See above dictation concerning left hand. No additional rashes or lesions are noted. PSYCH: The patient is pleasant and cooperative on today's exam, appropriate mood and affect. NEUROLOGIC: A and O x3, appropriate mood and affect, speech is noted to be fluid and fluent. RADIOGRAPHS: 3 views of the left hand were reviewed today revealing no acute fracture dislocation. Osteoarthritic changes are noted in the IP joints diffusely. Osteoarthritic changes are also noted in the basilar thumb joint. Intact surgical hardware is noted in the distal radius, with no signs of loosening. Hardware is partially obscured due to the focused hand films. Possible ununited ulnar styloid fracture is also noted. No signs of osteomyletis noted on current films. ASSESSMENT: Left hand cellulitis. PLAN: This patient's case and radiographs were reviewed with Dr. Saucedo today, who was initially consulted by Dr. Hattie Ross. At this time, Dr. Saucedo feels that without an MRI, which would potentially show an abscess that may or may not be suitable for irrigation, debridement and drainage, that we should continue antibiotic treatment, Ancef, as ordered previously by Dr. Ross, and continue to monitor for improvement. We will continue to monitor her labs, as well as her pending blood cultures. The patient notes that her pain is under control on her current pain regimen. At this time, no n.p.o. order will be placed, and the patient will be evaluated tomorrow morning by Dr. Saucedo, for the possibility of needing any further surgical intervention. All of the patient's questions have been answered today, and her concerns addressed. She has relayed her understanding of the current care plan and education presented today. We will continue to follow this patient while in-house. It remains my pleasure to assist in the care of this patient. /[id number]/MODL MTDD
[2018-06-16] MEDS: oxyCODONE IR 5 MG TAB PO PRN (05:16)
[2018-06-16 05:24] LABS: PLATELET COUNT 188 10^3/uL (150-400)
[2018-06-16] MEDS ORDERED: POTASSIUM CL 10 MEQ TAB PO ONE (06:13)
[2018-06-16] MEDS: LEVOTHYROXINE 150 MCG TAB PO SCH ×2 (09:15→15:54)
[2018-06-16] MEDS: HYDROCODONE/APAP 5/325 TAB PO PRN (09:15)
[2018-06-16] MEDS: PIOGLITAZONE HCL 15 MG TAB PO SCH ×2 (09:15→15:54)
[2018-06-16] MEDS: amLODIPine BESYLATE 5 MG TAB PO SCH ×2 (09:18→15:54)
--- NOTE | 2018-06-16 11:41 | SOAPPROG ---
SOAP Progress Note Assessment/Plan: Assessment: Plan: Subjective: Im a bit better. Objective: Vital Signs Temp Pulse Resp BP Pulse Ox 36.8 C 99 12 92/66 L 90 L 06/16/18 11:30 06/16/18 11:30 06/16/18 11:30 06/16/18 11:30 06/16/18 11:30 Laboratory Results 06/16/18 05:00 06/16/18 05:00 06/15/18 06/16/18 06/17/18 05:59 05:59 05:59 Intake Total 1745 Balance 1745 PT 14.7 SEC (12.0-15.0) 06/15/18 10:00 INR 1.13 (0.83-1.16) 06/15/18 10:00 ICD10 Worksheet Patient Problems: Problems Problem Status Onset Cellulitis of left thumb Acute Dehydration Acute Failure to thrive in adult Acute Hallucination Acute
--- NOTE | 2018-06-16 11:58 | SOAPPROG ---
SOAP Progress Note Assessment/Plan: Assessment: Slight improvement in symptoms and no evidence of focal fluid collection. Increasing WBC is concerning. Plan:Continue to observe. Continue IV abx. Await blood cultures. 06/16/18 11:56 Subjective: I feel better Objective: Vital Signs Temp Pulse Resp BP Pulse Ox 36.8 C 99 12 92/66 L 90 L 06/16/18 11:30 06/16/18 11:30 06/16/18 11:30 06/16/18 11:30 06/16/18 11:30 Laboratory Results 06/16/18 05:00 06/16/18 05:00 06/15/18 06/16/18 06/17/18 05:59 05:59 05:59 Intake Total 1745 Balance 1745 PT 14.7 SEC (12.0-15.0) 06/15/18 10:00 INR 1.13 (0.83-1.16) 06/15/18 10:00 Erythema is less then yesterday adn swelling is also done some. Still minimal pain along flexor tendon sheath of L thumb. Remains NVI ICD10 Worksheet Patient Problems: Problems Problem Status Onset Cellulitis of left thumb Acute Dehydration Acute Failure to thrive in adult Acute Hallucination Acute
[2018-06-16] MEDS: INSULIN LISPRO 100 UNIT/ML SC SCH ×3 (15:34→18:38)
[2018-06-16] MEDS: ENOXAPARIN 40 MG/0.4 ML SYR SC SCH (15:54)
--- NOTE | 2018-06-16 17:09 | HOSPPROG ---
Hospitalist Progress Note Assessment/Plan: Subjective Follow-up on left hand cellulitis. Patient states her left hand feels better today as compared to yesterday. Overnight no acute events. Her nurse did report to me this morning that she had a hard time keeping her awake enough so that she did not feel safe administering pills. Later in the day when she was up with physical therapy they found a small bag of her home Ambien tablets. Objective Vitals as detailed below Exam General-patient is sedate but arousable and answering simple questions. Heart-regular rate and rhythm no murmurs Lungs-Clear to auscultation with normal respiratory effort Abdomen-soft nontender nondistended normal bowel sounds -no Bradley catheter in place Extremities-swelling appreciated in the dorsal aspect of the left hand, mild but nonsignificant erythema and mildly warm to touch, no erythema appears to extend past the demarcation from yesterday. Skin-no other concerning skin rashes noted Labs as detailed below Assessment plan Encephalopathy-may be related to infection but I would not rule out the possibility of zolpidem contributing to her sedation. I recommend that we hold this for now. She did also have a home supply with her here in the hospital in may have taken an extra dose. Cellulitis-clinically improved however her white blood cell count did increase from 21-25k overnight. Monitor closely with current antibiotic therapy. Leukocytosis-reassess again tomorrow morning. Hypoxia-suspect chronic. Suspect related to obstructive sleep apnea. Hypertension-continue current amlodipine 5 mg daily. Obstructive sleep apnea-suspected. I recommended to her to talk with her primary doctor about potentially having a formal sleep study. It sounds like this discussion has already occurred in the past. Diabetes mellitus type 2-continue Actos. Hypothyroidism-continue current dosing of levothyroxine. Lower extremity edema-mild. Could be related to Actos and amlodipine. Potentially alternative could be looked at in the future. Chronic low back pain-patient has a spinal stimulator. Also continue with Cymbalta. I adjusted oxycodone downward to 5 mg every 4 hr as needed considering sedation observed today. DVT prophylaxis-Lovenox. Disposition-patient lives at home with her . Objective: Vital Signs Temp Pulse Resp BP Pulse Ox 36.5 C 102 H 12 106/87 H 92 06/16/18 15:37 06/16/18 15:37 06/16/18 15:37 06/16/18 15:37 06/16/18 15:37 Laboratory Results 06/16/18 05:08 06/16/18 05:00 06/15/18 06/16/18 06/17/18 05:59 05:59 05:59 Intake Total 1745 Balance 1745 PT 14.7 SEC (12.0-15.0) 06/15/18 10:00 INR 1.13 (0.83-1.16) 06/15/18 10:00 ICD10 Worksheet Patient Problems: Problems Problem Status Onset Cellulitis of left thumb Acute Dehydration Acute Failure to thrive in adult Acute Hallucination Acute
[2018-06-16] MEDS ORDERED: CALCIUM CARBONATE 500 MG CHEWABLE TAB PO PRN (17:53)
[2018-06-16] MEDS: DULoxetine 60 MG CAP PO SCH (21:09)
[2018-06-16] MEDS: ACETAMINOPHEN 325 MG TAB PO PRN (21:33)
[2018-06-17] MEDS: HYDROCODONE/APAP 5/325 TAB PO PRN ×3 (01:19→17:31)
[2018-06-17 05:44] LABS: PLATELET COUNT 182 10^3/uL (150-400)
[2018-06-17] MEDS: amLODIPine BESYLATE 5 MG TAB PO SCH (07:56)
[2018-06-17] MEDS: ENOXAPARIN 40 MG/0.4 ML SYR SC SCH (07:56)
[2018-06-17] MEDS: PIOGLITAZONE HCL 15 MG TAB PO SCH (07:57)
[2018-06-17] MEDS: LEVOTHYROXINE 150 MCG TAB PO SCH (07:57)
[2018-06-17] MEDS: oxyCODONE IR 5 MG TAB PO PRN ×2 (08:06→17:40)
--- NOTE | 2018-06-17 08:56 | SOAPPROG ---
SOAP Progress Note Assessment/Plan: Assessment:Improvement in WBC is encouraging but swelling in distal forearm is worrisome, as is loss of ROM in hand and fingers. Plan:Since MRI is not possible due to Spinal Cord Stimulator, and she has a metal plate in wrist, will attempt US to look for fluid collection in distal volar forearm. 06/17/18 08:53 Subjective: Feels better with less pain Objective: Vital Signs Temp Pulse Resp BP Pulse Ox 36.4 C 100 20 137/80 H 94 06/17/18 07:32 06/17/18 07:32 06/17/18 07:32 06/17/18 07:32 06/17/18 07:32 Laboratory Results 06/17/18 04:33 06/17/18 04:33 06/16/18 06/17/18 06/18/18 05:59 05:59 05:59 Intake Total 1745 400 Balance 1745 400 PT 14.7 SEC (12.0-15.0) 06/15/18 10:00 INR 1.13 (0.83-1.16) 06/15/18 10:00 WBC down to nearly normal levels today. Erythema less on volar surface but swelling is now greater in volar distal forearm. No tenderness along flexor sheath of involved thumb. Ecchymosis in palm seems unchanged. ICD10 Worksheet Patient Problems: Problems Problem Status Onset Cellulitis of left thumb Acute Dehydration Acute Failure to thrive in adult Acute Hallucination Acute
[2018-06-17] MEDS: INSULIN LISPRO 100 UNIT/ML SC SCH ×3 (09:20→17:23)
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
[2018-06-17] MEDS ORDERED: POTASSIUM CL 20 MEQ TAB PO ONE (09:28)
[2018-06-17] MEDS ORDERED: NS 1,000 ML IV SCH (09:30)
[2018-06-17] MEDS ORDERED: LIDOCAINE 1% 300 MG/30 ML SDV ONE (10:11)
[2018-06-17] MEDS: IPRATROPIUM/ALBUTEROL 3 ML DEYVIAL IH SCH ×2 (10:15→15:55)
--- NOTE | 2018-06-17 11:23 | ASMTCMCOM ---
CM Note CM Note Notes: Pt is a 72 y/o female admitted for left hand cellulitis. It is uncertain if pt will have any needs at this time. Pt is currently on ancef 1gm. OT has cleared pt to d/c home without any needs. CM to follow. Plan: TBD Date Signed: 06/17/2018 11:22 AM Electronically Signed By:NELL Lafleur
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
[2018-06-17] MEDS: ZOLPIDEM TARTRATE 5 MG TAB PO SCH (21:32)
[2018-06-17] MEDS: DULoxetine 60 MG CAP PO SCH (21:32)
[2018-06-18] MEDS: IPRATROPIUM/ALBUTEROL 3 ML DEYVIAL IH SCH ×5 (01:53→21:32)
[2018-06-18 02:56] LABS: PLATELET COUNT 182 10^3/uL (150-400)
[2018-06-18] MEDS: oxyCODONE IR 5 MG TAB PO PRN ×2 (05:15→10:37)
--- NOTE | 2018-06-18 06:55 | SOAPPROG ---
SOAP Progress Note Assessment/Plan: Assessment/Plan: L hand cellulitis, s/p L wrist US guided aspiration performed on 06/17/18 -Labs improved today, will order CRP/ESR to assess trend -Cont to monitor for aspiration cultures, gram stain 3+ PMM, no organisms, c/s pending -Cont to monitor blood cultures, NGTD -Cont non-surgical treatment at this time, will cont to monitor, fluid collection seen on US concerning w/ intact hardware -Cont abx as ordered by hospitalist service -Cont current pain regimen -Cont ROM of wrist/hand/fingers as tolerated -Cont Lovenox for VTE chemoprophylaxis per hospitalist service 06/18/18 06:54 Subjective: Pt seen at bedside. She reports no significant pain at this time. She states she had some discomfort overnight and had difficulty sleeping, however, she states this is much improved at the time of visit. She also specifically denies marie, dizziness, syncope, f/c/n/v/d/c, cp, sob, bilateral posterior calf pain or any new onset n/t. She reports her left hand pain specifically is improved, and per her recollection, her swelling has improved since yesterday. She reports that she tolerated her aspiration well. She states it hurts less to move her wrist/hand/fingers today. She continues to deny any forearm pain. She feels she is tolerating her diet and medication well. She has a strong desire to go home, as she is worried about her , who she states cannot adaquately take care of himself. She has no additional concerns or complaints at this time. Per nursing report, the patient had some confusion overnight. This was reported to be similar to her previous episodes of confusion. Otherwise, no significant concerns reported overnight. Objective: Vital Signs Temp Pulse Resp BP Pulse Ox 36.4 C 92 18 122/82 H 94 06/18/18 04:00 06/18/18 04:00 06/18/18 04:00 06/18/18 04:00 06/18/18 04:00 Laboratory Results 06/18/18 02:49 06/17/18 06/18/18 06/19/18 05:59 05:59 05:59 Intake Total 350 Output Total 1125 Balance -775 PT 14.7 SEC (12.0-15.0) 06/15/18 10:00 INR 1.13 (0.83-1.16) 06/15/18 10:00 Pt seen at bedside. [place] for exam. A&Ox3, appropriate mood and affect, pleasant and cooperative with exam. VSS, NAD, afebrile. Exam of the LUE reveals swelling on the dorsal surface of the hand, improved, with erythema over the dorsal surface, localized distally on the MCP joints and proximally to the MC bases. This is improved as well. On the palmar aspect, pt demonstrates swelling over the thernar eminence, extending proximally to the distal radius. Erythema extends distally on the dorsal and radial aspect of the thumb at the level of the P1 of the thumb. The erythema extends proximally approximally 10 cm on the volar aspect of the wrist. This is also improved since her last visit. Pt remain TTP on the thenar eminence, however, less tender than the previous day's exam. Hypothenar eminence is NTTP. Pt is NTTP over her laceration site, which is without surrounding erythema, calor, discharge or induration. Pt is NTTP over her digits 1-5. She is able to flex her fingers at the MCP joints with approx 30 deg flexion, and approximately 5 deg to full ext. She has full extension passively. Although she has subjective complaints about "fingertip" tingling, she is intact to light touch sensation in the median , radial and ulnar nerve distributions, with normal two point discrimination. Pt is TTP over her median nerve at the wrist level, with pain but no radiation with Tinel's. Pt does not tolerate Phalen's test d/t discomfort with wrist flexion. Forearm compartments are supple. Elbow ROM is WNL and without discomfort. Bilat LE exam revals stasis edema, unchanged since admission. Post calves are NTTP, no palpable vascular cords, neg Shital's bilat. DNVI BUE BLE. ICD10 Worksheet Patient Problems: Problems Problem Status Onset Cellulitis of left thumb Acute Dehydration Acute Failure to thrive in adult Acute Hallucination Acute
[2018-06-18] MEDS: amLODIPine BESYLATE 5 MG TAB PO SCH (08:06)
[2018-06-18] MEDS: LEVOTHYROXINE 150 MCG TAB PO SCH (08:06)
[2018-06-18] MEDS: PIOGLITAZONE HCL 15 MG TAB PO SCH (08:06)
[2018-06-18] MEDS: ENOXAPARIN 40 MG/0.4 ML SYR SC SCH (08:06)
[2018-06-18] MEDS: INSULIN LISPRO 100 UNIT/ML SC SCH ×3 (08:55→17:52)
--- NOTE | 2018-06-18 11:41 | HOSPPROG ---
Hospitalist Progress Note Assessment/Plan: #Left hand septic arthritis: hardware in place. Staph/Bacillus on culture. ID to consult. [facility]vate. -plan for I&D, hardware removal in morning # Metabolic/toxic encephalopathy: ambien and infection contributing. Minimize opioids # Chronic hypoxemic resp failure: h/o tobacco. PRN nebs -outpatient sleep study # Hypertension, currently on amlodipine 5 mg daily. Lower extremity edema may be secondary to this. # EDILBERTO: resolved with IVFs #Controlled DM2: Actos, SSI # Eosinophilia and macrocytosis has had an evaluation by Dr. Holt as an outpatient. He is currently doing further evaluation for workup. Levels are just out of the normal range. # chronic low back pain: with presence of a spinal stimulator. Cymbalta Subjective: hand less painful and can bend fingers more easily Objective: Vital Signs Temp Pulse Resp BP Pulse Ox 36.7 C 105 H 20 121/56 H 95 06/18/18 11:15 06/18/18 11:15 06/18/18 11:15 06/18/18 11:15 06/18/18 11:15 Laboratory Results 06/18/18 09:32 06/18/18 09:32 06/17/18 06/18/18 06/19/18 05:59 05:59 05:59 Intake Total 350 350 Output Total 1125 300 Balance -775 50 PT 14.7 SEC (12.0-15.0) 06/15/18 10:00 INR 1.13 (0.83-1.16) 06/15/18 10:00 - Time Spent With Patient Time Spent with Patient: greater than 35 minutes Time Spent with Patient: Greater than 35 minutes spent on this patients care, greater than 50% of time spent counseling, educating, and coordinating care regarding the above mentioned plan. - Physical Exam Constitutional: obese Ears, Nose, Mouth, Throat: moist mucous membranes Cardiovascular: regular rate and rhythym Respiratory: expiratory wheeze Gastrointestinal: normoactive bowel sounds Genitourinary: No jaime in urethra Musculoskeletal: other (Left hand with moderate swelling, red streaking up wrist. Decreased ROM of fingers. +2 radial pulse. RUE swollen with brusing 2/2 PIV. ) Neurologic: CN II-XII Intact, other (alert to place& place. Tangential ) Psychiatric: encephalopathic ICD10 Worksheet Patient Problems: Problems Problem Status Onset Cellulitis of left thumb Acute Dehydration Acute Failure to thrive in adult Acute Hallucination Acute
--- NOTE | 2018-06-18 13:12 | SOAPPROG ---
SOAP Progress Note Assessment/Plan: Assessment/Plan: L hand cellulitis, s/p L wrist US guided aspiration performed on 06/17/18 -Aspirate cultures growing staph/bacillus, will likely need I&D and hardware removal procedure, scheduled for 15:30 on 06/19/2018 -Will hold Lovenox dose for tomorrow AM -Pt will be NPO after midnight. OK for meds/cont abx treatment 06/18/18 13:07 Objective: Vital Signs Temp Pulse Resp BP Pulse Ox 36.7 C 105 H 20 121/56 H 95 06/18/18 11:15 06/18/18 11:15 06/18/18 11:15 06/18/18 11:15 06/18/18 11:15 Laboratory Results 06/18/18 09:32 06/18/18 09:32 06/17/18 06/18/18 06/19/18 05:59 05:59 05:59 Intake Total 350 350 Output Total 1125 300 Balance -775 50 PT 14.7 SEC (12.0-15.0) 06/15/18 10:00 INR 1.13 (0.83-1.16) 06/15/18 10:00 ICD10 Worksheet Patient Problems: Problems Problem Status Onset Cellulitis of left thumb Acute Dehydration Acute Failure to thrive in adult Acute Hallucination Acute
[2018-06-18] MEDS: HYDROCODONE/APAP 5/325 TAB PO PRN (15:00)
[2018-06-18] MEDS ORDERED: ALTEPLASE 2 MG VIAL IVP PRN (17:08)
[2018-06-18] MEDS: DULoxetine 60 MG CAP PO SCH (22:51)
[2018-06-18] MEDS: ZOLPIDEM TARTRATE 5 MG TAB PO SCH (22:51)
[2018-06-18] MEDS: ceFAZolin 2 GM/DEXTROSE 100 ML IV SCH (22:51)
[2018-06-18] MEDS: ACETAMINOPHEN 325 MG TAB PO PRN (22:51)
[2018-06-19] MEDS: ceFAZolin 2 GM/DEXTROSE 100 ML IV SCH ×3 (04:56→22:17)
[2018-06-19] MEDS: IPRATROPIUM/ALBUTEROL 3 ML DEYVIAL IH SCH ×3 (05:12→18:04)
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
[2018-06-19 05:55] LABS: PLATELET COUNT 166 10^3/uL (150-400)
--- NOTE | 2018-06-19 08:19 | HOSPPROG ---
Hospitalist Progress Note Assessment/Plan: #Left hand septic arthritis: hardware in place. Staph/Bacillus on culture. -plan for I&D, hardware removal today. Await surgical culture data #Hypokalemia: replete # Metabolic/toxic encephalopathy: ambien and infection contributing. Minimize opioids #Normocytic anemia: H/H down. No bleeding. Iron studies pending, repeat H/H # Chronic hypoxemic resp failure: h/o tobacco. PRN nebs -outpatient sleep study # Hypertension, currently on amlodipine 5 mg daily. Lower extremity edema may be secondary to this. # EDILBERTO: resolved with IVFs #Controlled DM2: Actos, SSI # Eosinophilia and macrocytosis has had an evaluation by Dr. Holt as an outpatient. He is currently doing further evaluation for workup. Levels are just out of the normal range. # chronic low back pain: with presence of a spinal stimulator. Cymbalta Subjective: pain with extension left wrist Objective: Vital Signs Temp Pulse Resp BP Pulse Ox 36.8 C 93 20 125/61 H 91 L 06/19/18 08:00 06/19/18 08:00 06/19/18 08:00 06/19/18 08:00 06/19/18 08:00 Laboratory Results 06/19/18 04:46 06/19/18 04:46 06/18/18 06/19/18 06/20/18 05:59 05:59 05:59 Intake Total 350 351 Output Total 1125 1500 Balance -775 -1149 PT 14.7 SEC (12.0-15.0) 06/15/18 10:00 INR 1.13 (0.83-1.16) 06/15/18 10:00 - Time Spent With Patient Time Spent with Patient: greater than 35 minutes Time Spent with Patient: Greater than 35 minutes spent on this patients care, greater than 50% of time spent counseling, educating, and coordinating care regarding the above mentioned plan. - Physical Exam Constitutional: no apparent distress, obese Ears, Nose, Mouth, Throat: moist mucous membranes Cardiovascular: regular rate and rhythym Respiratory: no respiratory distress Gastrointestinal: normoactive bowel sounds Genitourinary: no bladder fullness Skin: warm Musculoskeletal: other (laceration left thumb. Swelling of dorsum of hand. Pain , limited ROM of wrists, digits. Redness streak up wriost ) Neurologic: other Psychiatric: interacting appropriately ICD10 Worksheet Patient Problems: Problems Problem Status Onset Cellulitis of left thumb Acute Dehydration Acute Failure to thrive in adult Acute Hallucination Acute
[2018-06-19] MEDS: INSULIN LISPRO 100 UNIT/ML SC SCH ×3 (08:32→20:27)
[2018-06-19] MEDS: D5W NS 1,000 ML IV SCH ×2 (08:59→22:17)
[2018-06-19] MEDS: POTASSIUM Cl (KCl) 100 ML IV SCH ×3 (08:59→12:57)
--- NOTE | 2018-06-19 10:30 | PCMIDPN ---
Assessment/Plan: 1. Left hand infection with septic arthritis of the wrist in the setting of indwelling hardware: Hardware to be removed today with washout. Cultures are growing MSSA and rare bacillus. 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 Continue Ancef as is. 2. Miscellaneous: Patient states that she thinks she has had a tetanus booster during her hospitalizations here for her"multiple surgeries," but after our conversation told me"I am really not sure." Upon review of her previous hospitalizations, cannot find that she has been administered a Tdap. Therefore, will give prior to discharge. 3. Eosinophilia: In the process of outpatient workup for this. Preceeded antibiotics. Subjective: In good spirits. No significant complaints. Going down for a PICC line. Objective: Ancef 2 g IV q.8 hours day for No fevers Vital Signs Temp Pulse Resp BP Pulse Ox 36.8 C 93 20 125/61 H 91 L 06/19/18 08:00 06/19/18 08:00 06/19/18 08:00 06/19/18 08:00 06/19/18 08:00 Laboratory Results 06/19/18 04:46 06/19/18 04:46 06/18/18 06/19/18 06/20/18 05:59 05:59 05:59 Intake Total 350 351 Output Total 1125 1500 Balance -775 -1149 ESR 50 MM/HR (0-30) H 06/18/18 09:32 C-Reactive Protein 218.3 mg/L (<10.0) H 06/18/18 09:32 Wrist aspirate with MSSA and rare bacillus species - Physical Exam General Appearance: obese EENT: pharynx normal, No thrush Respiratory: lungs clear Extremities: other (Left hand puffy and swollen. Small transverse laceration that is healed evident on volar aspect of left thumb, nontender, although the thumb and 2nd digit are extremely puffy with evidence of tenosynovitis. Patient has a patch of erythema along the volar aspect of her left wrist around the scar. She is unable to flex and extend her wrist without pain.) ICD10 Worksheet Patient Problems: Problems Problem Status Onset Cellulitis of left thumb Acute Dehydration Acute Failure to thrive in adult Acute Hallucination Acute
[2018-06-19] MEDS: LEVOTHYROXINE 150 MCG TAB PO SCH (11:36)
[2018-06-19] MEDS: amLODIPine BESYLATE 5 MG TAB PO SCH (11:36)
--- NOTE | 2018-06-19 11:36 | ASMTCMCOM ---
CM Note CM Note Notes: Pt will need ivabx at time of d/c. Referral sent to [facility] and [facility]. Both are able to accept. CM met w/ pt and informed her that referrals have been sent. Pts address is [address] [place] [id number] and her number is [phone]. CM to follow. Plan: ALESIA; LAURA w/ Betzy Date Signed: 06/19/2018 11:36 AM Electronically Signed By:NELL Lafleur
[2018-06-19] MEDS: PIOGLITAZONE HCL 15 MG TAB PO SCH (11:44)
[2018-06-19] MEDS ORDERED: ZOLPIDEM TARTRATE 5 MG TAB PO PRN (13:49)
[2018-06-19] MEDS ORDERED: BUPIVACAINE/EPI 0.25% 30 ML SDV ONE (15:16)
[2018-06-19] MEDS ORDERED: BUPIVACAINE/EPI 0.5% 30 ML SDV ONE (15:16)
[2018-06-19] MEDS ORDERED: POLYMYXIN B SULFATE 500,000 UNIT/10 ML SYR IRR ONE (15:16)
[2018-06-19] MEDS ORDERED: MIDAZOLAM 2 MG/2 ML VIAL IVP ONE (15:30)
--- NOTE | 2018-06-19 15:30 | PDANEPAE ---
ANE History of Present Illness L hand I&D ANE Past Medical History - Cardiovascular History Hx Hypertension: Yes Hx Arrhythmias: No Hx Chest Pain: No Hx Coronary Artery / Peripheral Vascular Disease: No Hx CHF / Valvular Disease: No Hx Palpitations: No - Pulmonary History Hx COPD: No Hx Asthma/Reactive Airway Disease: No Hx Recent Upper Respiratory Infection: Yes Hx Oxygen in Use at Home: No Hx Sleep Apnea: Yes Sleep Apnea Screening Result - Last Documented: Positive - Neurologic History Hx Cerebrovascular Accident: No Hx Seizures: No Hx Dementia: No - Endocrine History Hx Diabetes: Yes - Renal History Hx Renal Disorders: No - Liver History Hx Hepatic Disorders: No - Neurological & Psychiatric Hx Hx Neurological and Psychiatric Disorders: No - Cancer History Hx Cancer: No - Congenital Disorder History Hx Congenital Disorders: No - GI History Hx Gastrointestinal Disorders: No - Other Health History Other Health History: lymphedema depression osteoperosis hypothyroid hysterectomy fawn appy - Chronic Pain History Chronic Pain: Yes ANE Review of Systems Review of systems is: negative Review of Systems: - Exercise capacity Exercise capacity: <4 METS ANE Patient History - Allergies Allergies/Adverse Reactions: No Known Allergies Allergy (Verified 06/15/18 09:16) - Home Medications Home medications: home medication list seen and reviewed Home Medications: Furosemide [Lasix 20 MG (*)] 20 mg PO DAILY PRN 03/29/14 [Last Taken 09/23/14 22 :00] Levothyroxine Sodium 150 mcg PO DAILY 03/29/14 [Last Taken 09/22/14 22:00] DULoxetine [Cymbalta 60 MG (*)] 60 mg PO DAILY@22 09/24/14 [Last Taken 09/23/14 22:00] Denosumab [Prolia] 60 mg SQ .[id number] 06/15/18 [Last Taken Unknown] Herbals/Supplements -Info Only 1 ea PO DAILY 06/15/18 [Last Taken Unknown] Ibuprofen [Motrin (*)] 600 mg PO DAILY PRN 06/15/18 [Last Taken Unknown] Pioglitazone HCl [Actos 15mg (*)] 15 mg PO DAILY 06/15/18 [Last Taken Unknown] Zolpidem Tartrate [Ambien 5MG (*)] 10 mg PO HS 06/15/18 [Last Taken Unknown] amLODIPine BESYLATE [Norvasc 5 mg (*)] 5 mg PO DAILY 06/15/18 [Last Taken Unknown] - NPO status NPO Status: no food or drink >8 hours NPO Since - Liquids (Date): 06/18/18 NPO Since - Liquids (Time): 12:00 NPO Since - Solids (Date): 06/18/18 NPO Since - Solids (Time): 12:00 - Anes Hx Anes Hx: no prior problems - Smoking Hx Smoking Status: Former smoker - Family Anes Hx Family Anes Hx: none ANE Labs/Vital Signs - Labs Result Diagrams: 06/19/18 04:46 06/19/18 04:46 - Vital Signs Vital Signs: reviewed preoperatively; see RN documention for details Blood Pressure: 139/76 Heart Rate: 94 Respiratory Rate: 16 O2 Sat (%): 93 Height: 167.64 cm Weight: 106.594 kg ANE Physical Exam - Airway Neck exam: FROM Mallampati Score: Class 3 Mouth exam: normal dental/mouth exam - Pulmonary Pulmonary: no respiratory distress - Cardiovascular Cardiovascular: regular rate and rhythym - ASA Status ASA Status: III ANE Anesthesia Plan Anesthesia Plan: GA w LMA
[2018-06-19] MEDS ORDERED: LR 1,000 ML IV ONE (15:32)
--- NOTE | 2018-06-19 15:34 | PDHPUP ---
History & Physical Update H&P update statement: This history and physical update is based on an assessment of the patient which was completed after admission or registration (within 24 hours), but prior to the surgery/procedure. H&P update: H&P reviewed & patient examined (Patient had aspirate of left wrist performed which grew staph and bacillus. ID has been consulted, feels likely MSSA is the predominant bacteria with bacillus being likely a contaminant. She had a PICC line placed today. She has been NPO since midnight. Risks and benefits of the procedure were reviewed with the patient. Signed informed consent obtained.), changes noted
[2018-06-19] MEDS ORDERED: DEXAMETHASONE 4 MG/ML VIAL ONE (15:52)
[2018-06-19] MEDS ORDERED: LIDOCAINE 2% 100 MG/5 ML SYR ONE (15:52)
[2018-06-19] MEDS ORDERED: fentaNYL 100 MCG/2 ML INJ ONE ×2 (15:52→16:34)
[2018-06-19] MEDS ORDERED: ONDANSETRON 4 MG/2 ML VIAL ONE (15:52)
[2018-06-19] MEDS ORDERED: PROPOFOL 200 MG/20 ML VIAL ONE (15:53)
[2018-06-19] MEDS ORDERED: NALOXONE HCL 0.4 MG/ML INJ IVP PRN (16:25)
[2018-06-19] MEDS ORDERED: fentaNYL 100 MCG/2 ML INJ IVP PRN (16:25)
[2018-06-19] MEDS ORDERED: DEXAMETHASONE 4 MG/ML VIAL IVP PRN (16:25)
[2018-06-19] MEDS ORDERED: ACETAMINOPHEN 500 MG TAB PO PRN (16:25)
[2018-06-19] MEDS ORDERED: HYDROCODONE/APAP 5/325 TAB PO PRN (16:25)
[2018-06-19] MEDS ORDERED: MEPERIDINE 25 MG/0.5 ML AMP IVP PRN (16:25)
[2018-06-19] MEDS ORDERED: oxyCODONE IR 5 MG TAB PO PRN (16:25)
[2018-06-19] MEDS ORDERED: ONDANSETRON 4 MG/2 ML VIAL IVP PRN (16:25)
[2018-06-19] MEDS ORDERED: PROMETHAZINE HCL 25 MG/ML INJ IVP PRN (16:25)
[2018-06-19] MEDS ORDERED: HYDROmorphONE/DILAUDID 2 MG/ML INJ IVP PRN (16:25)
--- NOTE | 2018-06-19 16:25 | POSTANESTH ---
Post Anesthetic Evaluation Cardiovascular Status: Similar to Pre-Op Cond Respiratory Status: Similar to Pre-op Cond. Level of Consciousness/Mental Status: Can Participate in Eval, Moderately Sleepy Pain Control: Adequate, Prn Tx Ordered Nausea/Vomiting Control: Adequate, Prn Tx Ordered Complications Possibly Related to Anesthesia: None Noted
[2018-06-19] MEDS ORDERED: LABETALOL HCL 5 MG/ML 20 ML MDV ONE (16:40)
[2018-06-19] MEDS ORDERED: LABETALOL HCL 20 MG/4 ML INJ IVP PRN (17:04)
--- NOTE | 2018-06-19 17:43 | SOAPPROG ---
SOAP Progress Note Assessment/Plan: Assessment/Plan: L hand cellulitis, s/p L wrist US guided aspiration performed on 06/17/18 -Aspirate cultures growing staph/bacillus, will likely need I&D and hardware removal procedure, scheduled for 15:30 on 06/19/2018 -Will hold Lovenox dose for tomorrow AM -Pt will be NPO after midnight. OK for meds/cont abx treatment 06/18/18 13:07 Objective: Vital Signs Temp Pulse Resp BP Pulse Ox 37.1 C 94 16 139/76 H 93 06/19/18 15:45 06/19/18 15:51 06/19/18 15:51 06/19/18 15:51 06/19/18 15:51 Microbiology 06/17/18 15:30 Urine Culture - Final Urine,Clean Catch Laboratory Results 06/19/18 04:46 06/19/18 04:46 06/18/18 06/19/18 06/20/18 05:59 05:59 05:59 Intake Total 350 351 Output Total 1125 1500 Balance -775 -1149 PT 14.7 SEC (12.0-15.0) 06/15/18 10:00 INR 1.13 (0.83-1.16) 06/15/18 10:00 ICD10 Worksheet Patient Problems: Problems Problem Status Onset Cellulitis of left thumb Acute Dehydration Acute Failure to thrive in adult Acute Hallucination Acute
--- NOTE | 2018-06-19 17:49 | SOAPPROG ---
SOAP Progress Note Assessment/Plan: Assessment/Plan: L hand flexor tenosynovitis s/p L hand I&D, hardware removal, carpal tunnel release, flexor tendon debridement, POD#0 -Pt to remain in her postoperative splint, drain in place -Cont PT/OT, pt is to be NWB of her LUE -Cont abx as ordered by ID, appreciate consult -Intraoperative cultures (deep space swabs x2, FPL synovium) pending -Cont current pain regimen as tolerated, caution for opiates d/t confusion -Ice and elevation as tolerated -Drain in place, likely to d/c drain 12/8 am without significant discharge -Cont SCDs and Lovenox (to restart 0800 06/20/18) for VTE chemoprophylaxis per medicine -Pt will f/u w/ / Lewis 6 days postoperatively 06/19/18 17:43 Subjective: Pt transported to PACU in stable condition Objective: Vital Signs Temp Pulse Resp BP Pulse Ox 37.1 C 94 16 139/76 H 93 06/19/18 15:45 06/19/18 15:51 06/19/18 15:51 06/19/18 15:51 06/19/18 15:51 Microbiology 06/17/18 15:30 Urine Culture - Final Urine,Clean Catch Laboratory Results 06/19/18 04:46 06/19/18 04:46 06/18/18 06/19/18 06/20/18 05:59 05:59 05:59 Intake Total 350 351 Output Total 1125 1500 Balance -775 -1149 PT 14.7 SEC (12.0-15.0) 06/15/18 10:00 INR 1.13 (0.83-1.16) 06/15/18 10:00 ICD10 Worksheet Patient Problems: Problems Problem Status Onset Cellulitis of left thumb Acute Dehydration Acute Failure to thrive in adult Acute Hallucination Acute
--- NOTE | 2018-06-19 17:51 | POSTOPPROG ---
Post Op Note Date of Operation: 06/19/18 Surgeon: Yosef Saucedo Stereo Equipment Salesperson: Sanchez Latif PAC Anesthesiologist: Aleks Anesthesia: LMA Pre-op Diagnosis: Abscess around old hardware left wrist Post-op Diagnosis: Same +abscess in carpal tunnel and FPL sheath Procedure: I+D, CTR, Tendon Debridement - flexors, Plate and screw removal Findings: Markedly reactive tenosynovium. Mostly along FPL but also other flexors Inf/Abcess present in the surg proc area at time of surgery?: Yes Depth: Organ Space EBL: 50-100 Complications: None
[2018-06-19] MEDS: ENOXAPARIN 40 MG/0.4 ML SYR SC SCH (18:38)
[2018-06-19] MEDS: HYDROCODONE/APAP 5/325 TAB PO PRN (19:19)
[2018-06-19] MEDS ORDERED: IPRATROPIUM/ALBUTEROL 3 ML DEYVIAL IH PRN (20:30)
[2018-06-19] MEDS: DULoxetine 60 MG CAP PO SCH (22:15)
[2018-06-20] MEDS: ceFAZolin 2 GM/DEXTROSE 100 ML IV SCH ×2 (05:06→14:05)
--- NOTE | 2018-06-20 06:14 | GOP ---
DATE OF OPERATION: 06/19/2018 SURGEON: Yosef Saucedo MD SOLE ROUNDER: Kelechi Latif PA-C. PREOPERATIVE DIAGNOSIS: 1. Abscess, left hand and wrist. 2. Retained hardware within an area of the abscess. POSTOPERATIVE DIAGNOSIS: 1. Abscess, left hand and wrist. 2. Retained hardware within an area of the abscess. 3. Carpal tunnel syndrome and septic flexor tenosynovitis. PROCEDURE PERFORMED: 1. Incision and drainage of deep abscess, left wrist. 2. Tenosynovectomy, flexor tendons, left wrist. 3. Open carpal tunnel release. 4. Deep hardware removal, left wrist. FINDINGS: She had marked tenosynovitis on the flexor tendons. The most heavily involved was the FPL tendon, which is consistent with her injury location at the thumb IP flexion crease. The most heavy involvement of the flexor tendons was distal to the carpal tunnel with mostly tenosynovitis on the F PL tendon proximal to this. I did release the entire carpal tunnel to expose and debride the flexor tendons. I thoroughly irrigated the wound and left a suction drain in the deep space of the palm wit h the tip curved towards the A1 lucas of the thumb. INDICATIONS: The patient is a 72-year-old woman who cut herself approximately 6-7 days ago on the umb on a glass bottle. Over the ensuing 2-3 days her hand became increasingly painful and red and sw ollen. She was admitted to the hospital and started on IV antibiotics. In a delayed fashion, she marie d resolution of her elevated white blood count and appeared to respond to IV antibiotics. I was unab le to obtain satisfactory 3 dimensional imaging on her due to an implanted spinal cord stimulator as well as previously placed hardware in her left wrist. Due to her slow resolution of symptoms and swe lling in her hand, ultrasound was completed with aspiration of a fluid collection which revealed Stap h aureus. She is brought to the operating room for the above-noted definitive surgical management an d drainage. DESCRIPTION OF PROCEDURE: After routinely checking the patient's identification, consent and the suc cessful induction of LMA general anesthetic, the patient's left upper extremity was prepped and drape d in usual standard fashion. I exsanguinated the limb with an Esmarch wrap and a pneumatic tournique t placed about the proximal aspect of the brachium was inflated to 250 mmHg. We subsequently increas ed this to 300 mmHg as much as the caliber of her arm was such that I could not get adequate compress ion on her arterial supply at 250 mmHg. A surgical time-out was completed. A longitudinal incision at the site of her previous surgery for implantation of her hardware from her radius fracture was car ried sharply through the skin. I spread bluntly through her subcutaneous layer. I encountered the F CR tendon and retracted this ulnarly. I incised the floor of the FCR fascial covering and then swept the contents of the distal forearm in an ulnarward direction. I dissected down to the pronator quad ratus and this from the plate. With the plate exposed, I unscrewed the plate and then jolene keyona it from the radius. The bony overgrowth was removed with a rongeur. I now debrided the FPL tend on, which was readily evident. Once the FPL tendon was debrided I worked distally, identifying that there was marked tenosynovitis on the remaining flexor tendons but with increasing volume of tenosyno vitis moving distally. I now continued my incision obliquely across the wrist, leaving a cuff of tissue for the passage of t he palmar cutaneous branch of the median nerve. I then dissected longitudinally along the thenar fle xion crease. Once I had dissected through the subcutaneous layer, I incised the deep fascial layers using a combination of sharp and blunt dissection until I had released the entire transverse carpal l igament and exposed the median nerve which is markedly stenotic at this location with dense hyperemia . The tenosynovitis on the flexor tendons was more evident distal to the transverse carpal ligament than proximal. Thick synovial tissue that was quite friable consistent with infectious tenosynovitis was debrided. I then flexed the thumb and debrided as much of the FPL tendon as I was able to reach . I thoroughly irrigated all areas with approximately 2 L of normal saline. I now used [id number] ght retention sutures to primarily close the skin and then filled this in to close her entire skin wo und with multiple interrupted sutures of 2-0, 3-0, and 4-0 nylon. A deep suction drain was placed in to the base of the A1 lucas of the thumb, curving through the carpal tunnel proximally into the fore arm, exiting through a stab wound proximal to our skin incision. 0.25% Marcaine plus epinephrine wer e infiltrated around the drain pathway for assistance in hemostasis and postoperative pain relief. A sterile bulky dressing was applied, followed by a plaster splint holding the digits and wrist in ext ension. She was reversed from anesthetic and extubated in the operating room. She tolerated the pro cedure well. There were no complications. REASON FOR PLANT NURSERY WORKER: A surgical corsetier was medically necessary and required to complete this case. The learning and development assistant was used to delicately track the flexor tendons and median nerve during th e approach for plate removal as well as continuation after identification that the flexor tendons wer e involved into the carpal tunnel. /[id number]/MODL
[2018-06-20] MEDS: LEVOTHYROXINE 150 MCG TAB PO SCH (07:47)
[2018-06-20] MEDS: INSULIN LISPRO 100 UNIT/ML SC SCH ×2 (07:51→12:08)
--- NOTE | 2018-06-20 08:11 | HOSPPROG ---
Hospitalist Progress Note Assessment/Plan: #Left hand septic arthritis: -POD #1 I&D left wrist abscess/tenosynovectomy/carpal tunnel release/hardware removed -await culture data. IV Ancef #Hypokalemia: replete Metabolic/toxic encephalopathy: ambien and infection contributing. Minimize opioids #Normocytic anemia: stable today. No bleeding. # Chronic hypoxemic resp failure: h/o tobacco. PRN nebs -outpatient sleep study # Hypertension, currently on amlodipine 5 mg daily. Lower extremity edema may be secondary to this. # EDILBERTO: resolved with IVFs #Controlled DM2: Actos, SSI # Eosinophilia and macrocytosis has had an evaluation by Dr. Holt as an outpatient. He is currently doing further evaluation for workup. Levels are just out of the normal range. # chronic low back pain: with presence of a spinal stimulator. Cymbalta DC today. See DC summary for A&P Objective: Vital Signs Temp Pulse Resp BP Pulse Ox 36.7 C 76 12 121/77 H 90 L 06/20/18 07:43 06/20/18 07:43 06/20/18 07:43 06/20/18 07:43 06/20/18 07:43 Microbiology 06/19/18 16:43 Gram Stain - Final Wrist - Tissue 06/19/18 16:28 Gram Stain - Final Wrist - Swab 06/19/18 16:27 Gram Stain - Final Wrist - Swab 06/17/18 15:30 Urine Culture - Final Urine,Clean Catch Laboratory Results 06/20/18 05:00 06/20/18 05:00 06/19/18 06/20/18 06/21/18 05:59 05:59 05:59 Intake Total 351 750 Output Total 1500 250 Balance -1149 500 PT 14.7 SEC (12.0-15.0) 06/15/18 10:00 INR 1.13 (0.83-1.16) 06/15/18 10:00 ICD10 Worksheet Patient Problems: Problems Problem Status Onset Cellulitis of left thumb Acute Dehydration Acute Failure to thrive in adult Acute Hallucination Acute
[2018-06-20] MEDS: amLODIPine BESYLATE 5 MG TAB PO SCH (09:48)
--- NOTE | 2018-06-20 09:48 | PDIAF ---
- Diagnosis Diagnosis: Septic arthritis left wrist Code Status: Full Code - Medication Management Clinical Specialist Antibiotics: Cefazolin 6 g/24 hr Halfway Antibiotic Stop Date: 07/03/18 Discharge Medications: electronically signed and located in the Home Medication List. PICC Care - Routine: Yes - Orders Isolation Type: None Additional Instructions: Orthopedic Hand Surgery 1. Patient is to keep her incision site clean and dry at all times, and to cover for showering purposes at all times. 2. Patient is to use ice and elevation for relief of mild swelling and pain. 3. Patient is to continue to monitor for signs of worsening infection, including but not limited to: increased redness and warmth, significant increases in pain or swelling, streaking, or discharge from her surgical incision site. She is also to watch for fevers, chills, nausea or vomiting. She is to contact the office as soon as possible should any of these occur. 4. Patient is to avoid significant pushing, pulling, lifting, twisting or carrying activities which increase her pain. She may move her hand and wrist for ROM purposes as tolerated. 5. Patient is to follow up with Dr. Saucedo 10-14 days postoperatively, or sooner with any additional concerns or complaints. She is to contact the office as soon as possible to schedule this appointment. 6. Patient is to contact our office with any additional concerns, complaints or questions at [phone]. - Labs/Radiology CBC w/diff Date: 06/26/18 (Please fax to [phone]) CMP Date: 06/26/18 (see above) - Follow Up Care Current Providers and Referrals: Yosef Saucedo MD [Medical Doctor] - (Pt is to follow up with Dr. Saucedo 10-14 days postoperatively, or sooner with any additional concerns or complaints. She is to contact the office as soon as possible to schedule this appointment.) Hugo Medina MD [Primary Care Provider] - As per Instructions Steff Moseley MD [Medical Doctor] - (Patient has follow-up at the [facility] with Dr. Moseley June 25 at 11:30 a.m.)
[2018-06-20] MEDS: PIOGLITAZONE HCL 15 MG TAB PO SCH (09:49)
[2018-06-20] MEDS: ENOXAPARIN 40 MG/0.4 ML SYR SC SCH (09:50)
--- NOTE | 2018-06-20 09:58 | PCMIDPN ---
Assessment/Plan: 1. Postop day 1 status post I and D of left wrist abscess, septic flexor tenosynovitis status post tenosynovectomy, carpal tunnel release and hardware removal: Wrist aspirate prior to surgery showed MSSA and rare bacillus species. 1 of the surgical specimens' Gram stain shows 1+ gram-negative rods. I called the microbiology lab; I was told that this is"1 small patch", and is likely an over decolorized specimen. It was also related to me that these looked more like coccobacilli/cocci. For now, will continue Ancef as is, and monitor cultures. Patient will be discharged today on continuous infusion cefazolin, with 2 weeks of intravenous therapy post washout. Can complete therapy with oral tail if she continues to improve. Follow-up arranged with Dr. Moseley. 2. Miscellaneous: Was notified by pharmacy that upon further review of patient's chart, she received a Tdap in 2017. 3. Eosinophilia: In the process of outpatient workup for this. Preceeded antibiotics. Over 25 min spent with this patient today. Subjective: Patient went to the operating room yesterday and underwent an incision and drainage of a left wrist abscess. She was found to have significant flexor tenosynovitis and had a tenosynovectomy of the flexor tendons. She had a carpal tunnel release and all hardware was removed. A PICC line was placed during surgery and they were only able to inserted into the affected arm. Patient is extremely anxious to go home today. She tells me"I can keep getting better at home. I need to get home."No diarrhea. Objective: Ancef 2 g IV q.8 hours day 5 No fevers Vital Signs Temp Pulse Resp BP Pulse Ox 36.7 C 76 12 121/77 H 95 06/20/18 07:43 06/20/18 07:43 06/20/18 07:43 06/20/18 07:43 06/20/18 07:43 Microbiology 06/19/18 16:43 Gram Stain - Final Wrist - Tissue 06/19/18 16:28 Gram Stain - Final Wrist - Swab 06/19/18 16:27 Gram Stain - Final Wrist - Swab 06/17/18 15:30 Urine Culture - Final Urine,Clean Catch Laboratory Results 06/20/18 05:00 06/20/18 05:00 1206/20/18 06/21/18 05:59 05:59 05:59 Intake Total 351 750 Output Total 1500 250 Balance -1149 500 ESR 50 MM/HR (0-30) H 06/18/18 09:32 C-Reactive Protein 218.3 mg/L (<10.0) H 06/18/18 09:32 Wrist aspirate prior to surgery grew rare MSSA and rare bacillus species Gram stain was negative 1 of the surgical specimens Gram stain 2+ PMNs 1+ gram-negative rods culture pending 2 other specimens with no organisms - Physical Exam General Appearance: alert, no apparent distress EENT: pharynx normal, No thrush Extremities: other (Left arm with primary surgical dressing in place; I did not take this down. PICC line is also noted in the left upper extremity.) ICD10 Worksheet Patient Problems: Problems Problem Status Onset Cellulitis of left thumb Acute Dehydration Acute Failure to thrive in adult Acute Hallucination Acute
--- NOTE | 2018-06-20 11:33 | ASMTLACE ---
JOYE Length of stay for Answers: 3 days current admission Acuity / Level of Answers: Yes Care: Did the patient have an inpatient admission? Comorbidities - select Answers: Diabetes (uncontrolled or all that apply controlled) Opioid dependence / Chronic pain Other Notes: HTN; Hypothyroid # of Emergency department Answers: 1-2 visits in the last 6 months Social determinants Answers: Mental health diagnosis (anxiety, depression, pers onality disorders, etc.) Score: 16 Date Signed: 06/20/2018 11:31 AM Electronically Signed By:Tawanna Cárdenas RN
--- NOTE | 2018-06-20 11:37 | ASMTDCNOTE ---
Case Management Discharge Discharge Order Complete? Answers: Yes Patient to Obtain Answers: Other Notes: [employer] [facility] Transportation Arranged Answers: Family/Friends Faxed Final Orders Answers: Yes Family Notified Answers: Yes Discharge Comments Notes: D/w MD, final orders faxed. Kaylie at [facility] and Jacob at [facility] notified. RN will see pt neo Date Signed: 06/20/2018 11:34 AM Electronically Signed By:Tawanna Cárdenas RN
[2018-06-20 11:41] VITALS: BP 108/63
--- NOTE | 2018-06-20 12:47 | SOAPPROG ---
SOAP Progress Note Assessment/Plan: Assessment:Doing OK post op. Reviewed operative findings with patient and son. Plan:Drain pulled. OK to go home. Will see in F/U next Saturday in office in [place]. Maintain ABX, and splint. 06/17/18 08:53 06/20/18 12:43 Subjective: No too much pain Objective: Vital Signs Temp Pulse Resp BP Pulse Ox 36.5 C 74 16 108/63 95 06/20/18 11:38 06/20/18 11:38 06/20/18 11:38 06/20/18 11:38 06/20/18 11:38 Microbiology 06/19/18 16:27 Gram Stain - Final Wrist - Swab 06/19/18 16:43 Gram Stain - Final Wrist - Tissue 06/19/18 16:28 Gram Stain - Final Wrist - Swab 06/17/18 15:30 Urine Culture - Final Urine,Clean Catch Laboratory Results 06/20/18 05:00 06/20/18 05:00 06/19/18 06/20/18 06/21/18 05:59 05:59 05:59 Intake Total 351 750 Output Total 1500 250 160 Balance -1149 500 -160 PT 14.7 SEC (12.0-15.0) 06/15/18 10:00 INR 1.13 (0.83-1.16) 06/15/18 10:00 AF VSS Reviewed Lab results. Appreciate Dr Naylor's expertise/input. Remains NVI in exposed digits on Left hand. Drain output 40c in first shift post op and 10 during second shift. Will I will D/C drain today. ICD10 Worksheet Patient Problems: Problems Problem Status Onset Cellulitis of left thumb Acute Dehydration Acute Failure to thrive in adult Acute Hallucination Acute
--- NOTE | 2018-06-20 12:52 | PDIAF ---
- Diagnosis Diagnosis: Septic arthritis left wrist Code Status: Full Code - Medication Management Tier Over Antibiotics: Cefazolin 6 g/24 hr Shelter Antibiotic Stop Date: 07/03/18 Discharge Medications: electronically signed and located in the Home Medication List. PICC Care - Routine: Yes - Orders Services needed: Home Care, Registered Nurse Home Care Face to Face: I certify that this patient was under my care and that I had the required [id number] encounter meeting the encounter requirements on the discharge day. My findings support the fact that the patient is homebound as defined in Home Care Face to Face Continued: [facility] Chapter 7 Medicare Benefits Manual 30.1.1 , The condition of the patient is such that there exists a normal inability to leave home and consequently, leaving home would require a considerable and taxing effort. Isolation Type: None Diet Recommendation: no restrictions on diet Diet Texture: Regular Texture Diet Additional Instructions: Orthopedic Hand Surgery 1. Patient is to remain in her splint at all times, and keep her incision site clean and dry at all times, and to cover for showering purposes at all times. 2. Patient is to remain non-weight bearing of the left hand/wrist. She is to avoid pushing, pulling, lifting, twisting and carrying activities. 3. Patient is to use ice and elevation for relief of mild swelling and pain. 4. Patient is to continue to monitor for signs of worsening infection, including, but not limited to: increased redness and warmth, significant increases in pain or swelling, streaking, or discharge from her surgical incision site. She is also to watch for fevers, chills, nausea or vomiting. She is to contact the office as soon as possible should any of these occur. 5. Patient is to follow up with Dr. Saucedo 6 days postoperatively, or sooner with any additional concerns or complaints. She is to contact the office as soon as possible to schedule this appointment. 6. Patient is to contact our office with any additional concerns, complaints or questions at [phone]. - Labs/Radiology CBC w/diff Date: 06/26/18 (Please fax to [phone]) CMP Date: 06/26/18 (see above) - Follow Up Care Current Providers and Referrals: Steff Moseley MD [Medical Doctor] - (Patient has follow-up at the [facility] with Dr. Moseley June 25 at 11:30 a.m.) Yosef Saucedo MD [Medical Doctor] - 06/25/18 (Pt is to follow up with Dr. Saucedo 6 days postoperatively, or sooner with any additional concerns or complaints. She is to contact the office as soon as possible to schedule this appointment.) Hugo Medina MD [Primary Care Provider] - As per Instructions
--- NOTE | 2018-06-20 13:32 | GDS ---
DISCHARGE DIAGNOSES: 1. Left wrist abscess/septic flexor tenosynovitis. 2. Eosinophilia. 3. Acute metabolic encephalopathy. 4. Hypertension. 5. Chronic lower extremity edema. 6. Hyperlipidemia. 7. Type 2 diabetes. 8. Depression. 9. Chronic back pain with a spine stimulator in place. 10. Hypothyroidism. 11. VIPUL. CONSULTATIONS: Infectious Disease, Dr. Saucedo. PROCEDURES: 06/19/2018: Left wrist abscess I/D. Tenosynovectomy, flexor tendons, left wrist, open carpal tunnel release. Deep hardware removal. HISTORY OF PRESENT ILLNESS: A 72-year-old female with diabetes, VIPUL, hypothyroidism, presented after cutting her thumb on glass, with increased hand pain and swelling on the left. She microwaved a glass bottle of olive oil, which exploded and had a cut when cleaning up. She notes the pain and swelling and redness in that hand had progressed over several days. She had some chills but no fevers. HOSPITAL COURSE BY PROBLEM: 1. Left wrist abscess/tenosynovitis: Status post I and D of the left wrist abscess/tenosynovectomy/carpal tunnel release and hardware removal by Dr. Saucedo. Dr. Naylor with ID evaluated her. Will continue Ancef for 2 weeks postop. She will follow up with Dr. Moseley. Pain control with Tylenol and Advil. 2. Acute metabolic encephalopathy. Early in her hospitalization, staff found extra Ambien in her room. Her mental status has improved. Will discontinue this at discharge. Will not provide narcotics. 3. Normocytic anemia. H and H are stable. 4. Chronic hypoxic respiratory failure, history of tobacco. She needs an outpatient sleep study. 5. Hypertension: Amlodipine. 6. Acute kidney injury, resolved with intravenous fluids. 7. Controlled diabetes, Actos and sliding scale insulin. 8. Eosinophilia and macrocytosis: She is followed by Dr. Holt. 9. Chronic low back pain: Has a spine stimulator. 10. Depression. She is on Cymbalta. DISPOSITION: Patient is stable for discharge home with IV antibiotics. FOLLOWUP: 1. Dr. Moseley. 2. Dr. Holt. 3. Her primary care physician. PHYSICAL EXAMINATION: VITAL SIGNS: Today, temperature 36.5, blood pressure 108 /83, heart rate in the 70s, respirations 16, 95% on room air. GENERAL: She is obese. No acute distress HEENT: PERRLA. Moist mucous membranes. CV: Regular rate and rhythm. LUNGS: Clear. ABDOMEN: Soft, nontender, nondistended. Positive bowel sounds. : No Bradley. MUSCULOSKELETAL: Left hand wrapped with Nash bandage. Left thumb with healing laceration. Can move that joint. NEURO: 2 through 12 intact. PSYCH: Alert and oriented x3. Time spent on discharge: Greater than 30 minutes, coordinating with Dr. Naylor, Dr. Saucedo, and Case Management. /[id number]/MODL MTDD
--- NOTE | 2018-06-20 16:34 | ASDISCHSUM ---
Discharge Information Plan Status:IV ABX/Infusion Medically Cleared to Leave: Discharge Date:06/20/2018 03:16 PM D/C Disposition:Home Health Service [facility] D/C Disposition:Home, Routine, Self-Care Projected Discharge Date:06/20/2018 11:00 AM Transportation at D/C:Family Discharge Delay Reason: Follow-Up Date:06/20/2018 11:00 AM Discharge Slot: Final Diagnosis: Placement Information Referral Type:Home Infusion Referral ID:[id number] Provider Name:[facility] Address 1:[address] Address 2: City:[place] Selection Factors: State:[place] Referral Type:*Home Health Care Services Referral ID:[id number] Provider Name:[facility] Address 1:[address] Address 2: City:[place] Selection Factors: State:[place] Patient Contact Information Contact Name:MASTER Relationship: Address:[address] Work Phone: City:[place] Alternate Phone: [facility]/Zip Code:[place] [address] Email: Financial Information Financial Class:Medicare Advantage Plans Primary Plan Desc:EZEQUIELA GOLD MEDICARE Primary Plan Number:[id number] Secondary Plan Desc: Secondary Plan Number: Assessment Information LACE LACE Length of stay for Answers: 3 days current admission Acuity / Level of Answers: Yes Care: Did the patient have an inpatient admission? Comorbidities - select Answers: Diabetes (uncontrolled or all that apply controlled) Opioid dependence / Chronic pain Other Notes: HTN; Hypothyroid # of Emergency department Answers: 1-2 visits in the last 6 months Social determinants Answers: Mental health diagnosis (anxiety, depression, pers onality disorders, etc.) Score: 16 Date Signed: 06/20/2018 11:31 AM Electronically Signed By:Tawanna Cárdenas RN [facility] CM Progress Note CM Note CM Note Notes: Pt is a 72 y/o female admitted for left hand cellulitis. It is uncertain if pt will have any needs at this time. Pt is currently on ancef 1gm. OT has cleared pt to d/c home without any needs. CM to follow. Plan: TBD Date Signed: 06/17/2018 11:22 AM Electronically Signed By:NELL Lafleur [facility] CM Progress Note CM Note CM Note Notes: Pt will need ivabx at time of d/c. Referral sent to [facility] and [facility]. Both are able to accept. CM met w/ pt and informed her that referrals have been sent. Pts address is [address] [place] [id number] and her number is [phone]. CM to follow. Plan: ALESIA; LAURA w/ [facility] Date Signed: 06/19/2018 11:36 AM Electronically Signed By:NELL Lafleur Case Management Discharge Plan Note Case Management Discharge Discharge Order Complete? Answers: Yes Patient to Obtain Answers: Other Notes: [facility] Transportation Arranged Answers: Family/Friends Faxed Final Orders Answers: Yes Family Notified Answers: Yes Discharge Comments Notes: D/w , final orders faxed. Kaylie at [facility] and Jacob at [facility] notified. RN will see pt neo Date Signed: 06/20/2018 11:34 AM Electronically Signed By:Tawanna Cárdenas RN Intervention Information Intervention Type:*IM-Signed Date of Service:06/20/2018 03:04 PM Patient Type:Inpatient Staff Member:Nasra Murphy Hours: Discipline: Severity: Comment:
== END 2018-06-20 15:16 | disposition home or self-care (01) | DRG 495 ==
LOC: INTOOBSV 09:48 → F3E 11:27 → OBSVTOIN 06-17 13:56
PROVIDERS: ADMIT Internal Medicine; ATTEND Internal Medicine
DX: M65.142 Other infective (teno)synovitis, left hand (principal); L02.414 Cutaneous abscess of left upper limb; M00.832 Arthritis due to other bacteria, left wrist; B95.61 Methicillin susceptible Staphylococcus aureus infection as the cause of diseases classified elsewhere; G93.41 Metabolic encephalopathy; G56.02 Carpal tunnel syndrome, left upper limb; N17.9 Acute kidney failure, unspecified; E11.9 Type 2 diabetes mellitus without complications; J96.11 Chronic respiratory failure with hypoxia; I10 Essential (primary) hypertension; M54.5 Low back pain; E03.9 Hypothyroidism, unspecified; E78.5 Hyperlipidemia, unspecified; G47.33 Obstructive sleep apnea (adult) (pediatric); D64.9 Anemia, unspecified; E87.6 Hypokalemia; Z87.81 Personal history of (healed) traumatic fracture; Z23 Encounter for immunization; Z87.891 Personal history of nicotine dependence; Z96.89 Presence of other specified functional implants
CPT/HCPCS: 96365; 97116-GP; 97161-GP; 97165-GO; 97530-GO; 97535-GO; C1751; G0378; J0690; J1100; J1170; J1642; J1650; J1815; J2001; J2250; J2405; J2704; J3010; J3475; J3480

== ENCOUNTER → 2018-11-10 | Outpatient (CLI) | payer OTHER | LOC: FIMAGING 11:53 | PROVIDERS: ATTEND Internal Medicine | DX: Z12.31 Encounter for screening mammogram for malignant neoplasm of breast (principal) ==